=== PATIENT | male | born 1950 | race Caucasian/White ===

== ENCOUNTER → 2016-11-11 | Outpatient (CLI) | payer OTHER, MEDICAID | LOC: FIMAGING 13:42 | PROVIDERS: ATTEND Internal Medicine | DX: M75.42 Impingement syndrome of left shoulder (principal); M75.82 Other shoulder lesions, left shoulder; M75.22 Bicipital tendinitis, left shoulder ==

== ENCOUNTER 2017-01-05 17:07 | Observation (INO) | payer OTHER, MEDICAID ==
[2017-01-05 18:21] LABS: ADD DIFF? YES; ADD MORPH? NO; ADD SCAN? NO; ATYPICAL LYMPHOCYTE FLAG 60 (0-99); FRAGMENT RBC FLAG 0 (0-99); HEMATOCRIT 42.6 % (40.0-51.0); HEMOGLOBIN 14.1 g/dL (13.7-17.5); LEFT SHIFT FLG 0 (0-99); LIPEMIA HEMOLYSIS FLAG 80 (0-99); MEAN CELL HEMOGLOBIN 28.8 pg (27.9-34.1); MEAN CELL HEMOGLOBIN CONCENTR. 33.1 g/dL (32.4-36.7); MEAN CELL VOLUME 87.1 fL (81.5-99.8); MEAN PLATELET VOLUME 10.4 fL (8.7-11.7); PLATELET CLUMPS FLAG 0 (0-99); PLATELET COUNT 166 10^3/uL (150-400); RED BLOOD CELL COUNT 4.89 10^6/uL (4.40-6.38); RED CELL DISTRIBUTION WIDTH 14.5 % (11.5-15.2)
[2017-01-05 18:35] LABS: ANION GAP 8 mEq/L (8-16); CALCIUM 9.3 mg/dL (8.5-10.4); CARBON DIOXIDE 24 mEq/l (22-31); CHLORIDE 105 mEq/L (97-110); CREATININE 0.6 mg/dL (0.7-1.3); GLOMERULAR FILTRATION RATE > 60; GLUCOSE 88 mg/dL (70-100); POTASSIUM 3.6 mEq/L (3.5-5.2); SODIUM 137 mEq/L (134-144)
[2017-01-05 18:47] LABS: PLATELET ESTIMATE ADEQUATE (ADEQ)
--- NOTE | 2017-01-05 18:49 | EDPHY ---
H & P Stated Complaint: blisters to feet/chills(put vandana tree oil on feet Time Seen by Provider: 01/05/17 17:32 HPI/ROS: CHIEF COMPLAINT: Bilateral feet infection with blisters HISTORY OF PRESENT ILLNESS: This is a 66-year-old male presenting to the emergency department via wheelchair. Patient states he had been using tea tree oil to help with toenail on fungus infection x2 weeks. One week ago he noticed redness and swelling to his bilateral lower feet, into 3 days ago noticed blisters to his feet with increased redness spreading up his lower legs. Denies any fever chills nausea vomiting. Patient was seen by his primary care provider today Dr. Soni and was sent to the ER for admit IV antibiotics REVIEW OF SYSTEMS: Constitutional: No fever, no chills. Eyes: No visual changes. ENT: No sore throat Respiratory: No cough, no shortness of breath. Cardiac: No chest pain. Gastrointestinal: No abdominal pain Genitourinary: No hematuria. Musculoskeletal: No back pain. Skin: No rashes. Bilateral lower extremity redness with blisters Neurological: No headache. Source: Patient - Personal History Current Tetanus/Diphtheria Vaccine: Unsure - Medical/Surgical History Hx Asthma: No Hx Chronic Respiratory Disease: No Hx Diabetes: No Hx Cardiac Disease: No Hx Renal Disease: No Hx Cirrhosis: No Hx Alcoholism: No Hx HIV/AIDS: No Hx Splenectomy or Spleen Trauma: No Other PMH: paraplegia , chronic utis; suprapubic catheter transverse myelitis - Social History Smoking Status: Never smoked - Physical Exam Exam: General Appearance: Alert, no distress. Eyes: Pupils equal and round no pallor or injection. ENT, Mouth: Mucous membranes moist. Respiratory: There are no retractions, lungs are clear to auscultation. Cardiovascular: Regular rate and rhythm. Gastrointestinal: Abdomen is soft and nontender, no masses, bowel sounds hypoactive. [place] leg bag noted patent Skin: Bilateral lower extremity redness and warmth swelling with blisters noted to the bottom of his feet. 1+ pedal edema nonpalpable pedal pulses pedal pulses noted via Doppler. Musculoskeletal: Neck is supple nontender. Extremities: Full range of motion upper extremities. 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 ] Constitutional: Initial Vital Signs Temperature (C) 36.3 C 01/05/17 17:20 Heart Rate 78 01/05/17 17:20 Respiratory Rate 20 01/05/17 17:20 Blood Pressure 122/63 H 01/05/17 17:20 O2 Sat (%) 100 01/05/17 17:20 O2 Delivery Mode Room Air Allergies/Adverse Reactions: No Known Allergies Allergy (Verified 01/05/17 17:19) Home Medications: Medication Instructions Recorded Betamethasone Dipropionate 15 gm TP BID PRN 01/05/17 Herbals/Supplements -Info Only 1 ea PO DAILY 01/05/17 Multivitamins [Multivitamin (*)] 1 each PO DAILY 01/05/17 Oxybutynin Chloride Xl [Ditropan 5 mg PO DAILY 01/05/17 Xl 5mg (*)] Medical Decision Making ED Course/Re-evaluation: Discussed plan of care the patient: CBC, Chem 7, lactate. Discussed also patient will be admitted for inpatient treatment 1850: Spoke with hospitalist Dr. Fields for patient admit Differential Diagnosis: Differential diagnosis considered but not limited to necrotizing fasciitis, dermatitis and skin abscess - Data Points Laboratory Results: Laboratory Results 01/05/17 17:50 01/05/17 17:50 01/05/17 01/05/17 01/05/17 17:50 17:50 17:50 WBC 6.90 10^3/uL 10^3/uL (3.80-9.50) RBC 4.89 10^6/uL 10^6/uL (4.40-6.38) Hgb 14.1 g/dL g/dL (13.7-17.5) Hct 42.6 % % (40.0-51.0) MCV 87.1 fL fL (81.5-99.8) MCH 28.8 pg pg (27.9-34.1) MCHC 33.1 g/dL g/dL (32.4-36.7) RDW 14.5 % % (11.5-15.2) Plt Count 166 10^3/uL 10^3/uL (150-400) MPV 10.4 fL fL (8.7-11.7) Neut % (Auto) Not Reported Lymph % (Auto) Not Reported [facility] % (Auto) Not Reported Eos % (Auto) Not Reported Baso % (Auto) Not Reported Nucleat RBC Rel Count 0.0 % % (0.0-0.2) Absolute Neuts (auto) Not Reported Absolute Lymphs (auto) Not Reported Absolute Monos (auto) Not Reported Absolute Eos (auto) Not Reported Absolute Basos (auto) Not Reported Absolute Nucleated RBC 0.00 10^3/uL 10^3/uL (0-0.01) Immature Gran % Not Reported Seg Neutrophils % 56 % % Band Neutrophils % 2 % % Lymphocytes % 17 % % Monocytes % 3 % % Eosinophils % 22 % % Immature Gran # Not Reported Absolute Seg Neuts 3.86 10^/uL 10^/uL (1.70-6.50) Absolute Band Neuts 0.14 10^3/uL 10^3/uL (0.00-0.70) Absolute Lymphocytes 1.17 10^3/uL 10^3/uL (1.00-3.00) Absolute Monocytes 0.21 10^3/uL L 10^3/uL (0.30-0.80) Absolute Eosinophils 1.52 10^3/uL H 10^3/uL (0.03-0.40) RBC/WBC/PLT Morphology NORMAL (NORMAL) Platelet Estimate ADEQUATE (ADEQ) Smear Review By Pending VBG Lactic Acid 1.1 mmol/L mmol/L (0.7-2.1) Sodium 137 mEq/L mEq/L (134-144) Potassium 3.6 mEq/L mEq/L (3.5-5.2) Chloride 105 mEq/L mEq/L (97-110) Carbon Dioxide 24 mEq/l mEq/l (22-31) Anion Gap 8 mEq/L mEq/L (8-16) BUN 19 mg/dL mg/dL (7-23) Creatinine 0.6 mg/dL L mg/dL (0.7-1.3) Estimated GFR > 60 Glucose 88 mg/dL mg/dL (70-100) Calcium 9.3 mg/dL mg/dL (8.5-10.4) Departure - Departure Disposition: [facility] Inpatient Acute Clinical Impression: Cellulitis Qualifiers: Site of cellulitis: extremity Site of cellulitis of extremity: lower extremity Laterality: unspecified laterality Qualified Code(s): L03.119 - Cellulitis of unspecified part of limb Condition: Good
[2017-01-05] MEDS ORDERED: ACETAMINOPHEN 325 MG TAB PO PRN (20:23)
[2017-01-05] MEDS ORDERED: ONDANSETRON DISINTEGRATING 4 MG TAB PO PRN (20:23)
[2017-01-05] MEDS ORDERED: ONDANSETRON 4 MG/2 ML VIAL IVP PRN (20:23)
--- NOTE | 2017-01-05 20:42 | GHP ---
[f rep st] HISTORY AND PHYSICAL DATE OF ADMISSION: 01/05/2017 CHIEF COMPLAINT: Bilateral lower extremity redness and blistering. HISTORY OF PRESENT ILLNESS: This is a 66-year-old male with a history of transverse myelitis and pa raplegia. He has wanted to treat toenail fungus and for the last week or so he has been treating it with tea tree oil. He has not been diluting it and has been using large amounts of it. Several da ys ago, he started developing redness and irritation and then it has progressed with a little bit of blistering. He had a little bit of chills today but no fever. He does have increased pain. REVIEW OF SYSTEMS: A 10-point review of systems was obtained and other than what was stated above w as negative. PAST MEDICAL HISTORY: 1. Transverse myelitis with paraplegia. 2. Chronic urinary tract infections with suprapubic catheter. MEDICATIONS: Reviewed. SOCIAL HISTORY: No smoking or alcohol. FAMILY HISTORY: Reviewed, noncontributory. PHYSICAL EXAMINATION: VITAL SIGNS: Afebrile, blood pressure is 127/68, heart rate is 57, oxygen sa turation 97% on room air. GENERAL: The patient is well developed, in no apparent distress. HEENT: Nonicteric sclerae. Extraocular movements intact. Moist mucous membranes. NECK: Supple. No th yromegaly. LUNGS: Good effort. Clear to auscultation bilaterally. CARDIOVASCULAR: Regular rate and rhythm. No murmurs or gallops. ABDOMEN: Positive bowel sounds. Soft, nontender, nondistended . No hepatosplenomegaly. EXTREMITIES: Bilateral erythema of the feet extending to the mid leg. T here is blistering over the areas close to the toes, small blistering. ASSESSMENT: This is a 66-year-old male presenting with probable caustic reaction to tea tree oil pl us or minus cellulitis. PLAN: 1. Rule out cellulitis. I am skeptical that this is cellulitis and probably favor more of a causti c reaction from the tea tree oil. I believe tea tree undiluted could be quite caustic. He does not have an elevated white count nor does he have fever. His legs look exactly symmetric. It is possi ble that there is maybe a superinfection. For this reason, I am going to treat. I am going to star t IV Ancef overnight. We will see if there is any change in the redness from that. Also have Infec tious Disease see him in the morning as they are familiar with him from previous from his chronic ur inary tract infections. 2. History of paraplegia. 3. Chronic urinary tract infections. The patient is not having any symptoms of this currently. 4. Admission. The patient will be admitted under observation status. The case was discussed with the ER physician. Old records were reviewed and summarized in HPI. /[id number]/MODL
[2017-01-06 08:52] VITALS: TEMP 97.4
[2017-01-06] MEDS ORDERED: OXYBUTYNIN 5 MG EXT REL TAB PO SCH (09:00)
--- NOTE | 2017-01-06 10:14 | PCMIDPN ---
Assessment/Plan: Assessment/Plan: * Bilateral foot erythema with blistering after application of tea tree oil: Suspect majority of findings are related to contact dermatitis given absence of constitutional symptoms and prominent eosinophilia. Right great toe does have shiny erythematous appearance that could be seen with cellulitis however. Favored primarily targeting as if contact dermatitis at this point. Will transition cefazolin to Augmentin 875 mg p. o. twice daily in event superinfection present. Will have follow-up in my office with me on Thursday for repeat assessment. Advised to notify me if he experiences worsening lower extremity erythema or develops constitutional symptoms. Findings and plan reviewed with Dr. Ramesh. 01/06/17 10:11 Subjective: Asked to see patient for bilateral lower extremity erythema with concerns about possible cellulitis. Patient well known to me from outpatient care related to recurrent UTI associated with paraplegia. No sensation in lower extremities bilaterally. Patient describes applying tea tree oil to 4 toenail fungus over last 2 weeks and over last week has developed erythema with blistering over both feet. Unclear if he had tea tree oil that had spilled on to skin over dorsum of foot. He was applying socks after its application and does note that these would get wet. He does not feel systemically ill. He describes having some chills but this is not uncommon for him and these have not been different. No fever. Based on these findings, Infectious diseases is now asked to assist in his ongoing management. Objective: Vital Signs Temp Pulse Resp BP Pulse Ox 36.3 C 68 16 100/43 L 97 01/06/17 08:48 01/06/17 08:48 01/06/17 08:48 01/06/17 08:48 01/06/17 08:48 01/05/17 01/06/17 01/07/17 05:59 05:59 05:59 Intake Total 650 Output Total 900 Balance -250 Cefazolin # 1 Blood cultures x2 pending - Physical Exam General Appearance: alert, no apparent distress EENT: No scleral icterus Extremities: inflammation (Bilateral feet with bright erythema and bullous lesions over plantar aspect which are weeping clear fluid; all web spaces denuded with scattered scabbing over dorsal aspect of toes; warmth is present; patchy more papular erythema extends into lower extremities bilaterally) Lymphatic: other (No lymphangitis in either lower extremity) ICD10 Worksheet Patient Problems: Problems Problem Status Onset Cellulitis Acute Infection due to resistant organism Active Vancomycin resistant enterococcus culture positive Acute 01/23/16
--- NOTE | 2017-01-06 10:36 | WOCRNPDOC ---
WOCRN Advanced Assessment Note - Skin Integrity Problem, Advanced Assess Bilateral Foot Dressing Type: Open to Air Exudate Amount: Minimal Exudate Color: Clear Exudate Characteristic(s): Serous Jojo Wound Tissue: Erythema, Macerated, Swollen, Weeping, Shiny Jojo Wound Swelling: Moderate Wound Bed Constitution: Draining Serous Blister Skin Integrity Problem Comment: Multiple intact and draining blisters noted to plantar aspect of bilateral metatarsals, and in-between toes. There is significant maceration between patient's toes, w/ shallow partial-thickness tissue loss observed r/t denudement from exposure to exudate. Dorsal aspect of the foot has some scattered satellite lesions w/ some excoriation noted. Per patient report, these blisters are r/t application of tea tree oil on his toes and feet for tx of fungal infection. Erythema observed throughout bilateral feet , extending up both lower extremities to the knee, w/ trace pitting edema. Order for Mepilex Transfer to be applied in between toes and over blisters to manage exudate. Physician recommends topical corticosteroid cream over dry, itchy areas on the top of feet and lower legs. Report given to face boss Julie.
[2017-01-06 13:00] VITALS: BP 107/56; PULSE 77; RESP 18; O2SAT 98
--- NOTE | 2017-01-06 15:36 | GDS ---
[f rep st] DISCHARGE SUMMARY DISCHARGE DIAGNOSES: 1. Bilateral lower extremity erythema and blisters most likely due to contact dermatitis from tea t ree oil versus infection. 2. History of transverse myelitis. 3. Chronic urinary tract infections. CONSULTANTS: Dr. Gatito Machuca, as well as Mary Jimenez from [facility]. HOSPITAL COURSE AND STAY BY PROBLEM: Bilateral lower extremity erythema: The patient was initially placed on IV cefazolin. On hospital day #1, the patient has continued to have some erythema and bl isters that are most likely due to contact dermatitis. I discussed this with Dr. Gatito Machuca who is r ecommending outpatient treatment with Augmentin as well as a trial of topical steroids. PHYSICAL EXAM: VITAL SIGNS: On day of discharge, blood pressure 107/56, pulse 77, respiratory rate 18, O2 saturation 98% on room air. Temperature afebrile. GENERAL: No acute distress. EXTREMITIE S: Bilateral lower extremities are erythematous with blisters on the feet. PERTINENT LABS AND STUDIES: None. DISCHARGE MEDICATIONS: Please refer to discharge medication reconciliation in [facility] for details. Below is a preliminary list. Augmentin 875 mg p.o. b.i.d. for 7 days, triamcinolone 0.1% cream to be applied to red, irritated sk in twice daily. DISCHARGE INSTRUCTIONS: The patient will be discharged from the hospital where he plans to follow u p with Dr. Machuca at 2 p.m. on 01/09/2017. He was instructed to seek medical attention if his symptom s worsen or if he develops any fevers. /[id number]/MODL
== END 2017-01-06 15:30 | disposition home health service (06) ==
LOC: INTOOBSV 18:53 → F1N 20:29
PROVIDERS: ADMIT Internal Medicine; ATTEND Family Medicine
DX: S90.821A Blister (nonthermal), right foot, initial encounter (principal); L03.115 Cellulitis of right lower limb; S90.822A Blister (nonthermal), left foot, initial encounter; L03.116 Cellulitis of left lower limb; T49.3X5A Adverse effect of emollients, demulcents and protectants, initial encounter; G37.3 Acute transverse myelitis in demyelinating disease of central nervous system; G82.20 Paraplegia, unspecified; Z87.440 Personal history of urinary (tract) infections; Z99.3 Dependence on wheelchair
CPT/HCPCS: 99285; G0378; J0690

== ENCOUNTER 2017-01-27 10:08 | Inpatient (IN) | payer OTHER, MEDICAID ==
--- NOTE | 2017-01-27 10:26 | EDPHY ---
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 He had shaking chills for 2 hours last night and then a fever to 103 this morning. His infectious disease physician Gatito Machuca advised him to come into the ER. He has had a little bit of the sniffles and a dry mouth but no other symptoms. Specifically no cough or vomiting or diarrhea or headache or dental symptoms or other ENT symptoms. REVIEW OF SYSTEMS: Eye: no change in vision ENT: no sore throat Cardiac: no chest pain or syncope Pulmonary: no cough or SOB Abdomen: no vomiting, diarrhea, abdominal pain Musculoskeletal: no back pain Skin: Residual red skin rash on both lower legs which is unchanged from previous. Neuro: no headache Constitutional: HPI : no urinary symptoms A comprehensive 10 point review of systems is otherwise negative aside from elements mentioned in the history of present illness. 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 Admission earlier this month discharged on January 06 probable contact dermatitis related to tea tree oil application to his legs. Social history: In wheelchair, nonsmoker General Appearance: Alert and conversant, cooperative. Eyes: No scleral icterus. ENT, Mouth: Slightly dry mucous membranes. Respiratory: Normal respiratory effort, breath sounds equal, lungs are clear to auscultation. Cardiovascular: Regular rate and rhythm. Gastrointestinal: Abdomen is soft and non tender. Neurological: Alert and oriented x3. Normally conversant. Patient is lower extremity paralysis which is unchanged. Skin: Slight bilateral leg redness which is chronic since previous hospitalization. Musculoskeletal: He has muscle wasting in both lower extremities. No other deformity noted. Psychiatric: Not agitated. Emergency Department course/MDM: Discussed with Gatito Machuca 1026. Previous urine cultures reviewed include vancomycin resistant enterococcus and Pseudomonas. Zosyn per discussion with Gatito Machuca at 1155, considered skin on legs, UTI, lungs all as possible sources. 4.5 g IV Zosyn ordered, a 2nd blood pressure 90/5 systolic, 30 mL/kilos IV fluid bolus ordered. Admission to Step-Down Unit with elevated lactate and systolic blood pressure 95. 1308: 117/64, 2nd lactate 2.8 1445: additional 2l NS IV, seen by Fito in ED. Smoking Status: Never smoked Constitutional: Initial Vital Signs Temperature (C) 36.5 C 01/27/17 10:13 Heart Rate 88 01/27/17 10:13 Respiratory Rate 20 01/27/17 10:13 Blood Pressure 105/59 L 01/27/17 10:13 O2 Sat (%) 99 01/27/17 10:13 O2 Delivery Mode Room Air Allergies/Adverse Reactions: No Known Allergies Allergy (Verified 01/27/17 10:11) Home Medications: Medication Instructions Recorded Herbals/Supplements -Info Only 1 ea PO DAILY 01/05/17 Multivitamins [Multivitamin (*)] 1 each PO DAILY 01/05/17 Oxybutynin Chloride Xl [Ditropan 5 mg PO DAILY 01/05/17 Xl 5mg (*)] Desoximetasone 0.25% [Topicort 1 fannie TP BID 01/27/17 0.25% Cream (*)] Triamcinolone 0.1% [Triamcinolone 1 fannie TP BID 01/27/17 0.1% Cream] Medical Decision Making - Diagnostics Imaging Results: Imaging Impressions Chest X-Ray 01/27/17 10:26 Impression: Lower lung lung bronchial wall thickening +/- early right lower lung pneumonia. Differential Diagnosis: Differential considered including but not limited to UTI, cellulitis, pneumonia , sepsis or endocarditis. Consult/Admit Bed Type: [facility] 1145am for Fito, [facility] at 1216 Critical Care Time: Critical care time spent by me, Dr. Smiley, exclusively with the care of this patient was 45 minutes, exclusive of PA or APPLIANCE TECHNICIAN time and exclusive of separate procedures. The organ system at risk was infectious and I ordered multiple diagnostic studies, fluid resuscitation, IV antibiotics, discussion with consultant nurse infectious disease physician to stabilize the patient and prevent worsening of the patient's condition. - Data Points Laboratory Results: Laboratory Results 01/27/17 10:45 01/27/17 10:45 01/27/17 01/27/17 01/27/17 11:05 10:45 10:45 WBC RBC Hgb Hct MCV MCH MCHC RDW Plt Count MPV Neut % (Auto) Lymph % (Auto) [place] % (Auto) Eos % (Auto) Baso % (Auto) Nucleat RBC Rel Count Absolute Neuts (auto) Absolute Lymphs (auto) Absolute Monos (auto) Absolute Eos (auto) Absolute Basos (auto) Absolute Nucleated RBC Immature Gran % Immature Gran # PT 14.6 SEC SEC (12.0-15.0) INR 1.15 (0.83-1.16) APTT 30.3 SEC SEC (23.0-38.0) VBG Lactic Acid Sodium Potassium Chloride Carbon Dioxide Anion Gap BUN Creatinine Estimated GFR Glucose Calcium Total Bilirubin 1.3 mg/dL mg/dL (0.1-1.4) Urine Color MATEO Urine Appearance MODERATELY TURBID Urine pH 5.0 (5.0-7.5) Ur Specific [place] 1.026 (1.002-1.030) Urine Protein 2+ H (NEGATIVE) Urine Ketones TRACE H (NEGATIVE) Urine Blood 2+ H (NEGATIVE) Urine Nitrate POSITIVE H (NEGATIVE) Urine Bilirubin NEGATIVE (NEGATIVE) Urine Urobilinogen NEGATIVE EU EU (0.2-1.0) Ur Leukocyte Esterase 2+ H (NEGATIVE) Urine RBC 50-182 /hpf H /hpf (0-3) Urine WBC 50-182 /hpf H /hpf (0-3) Ur Epithelial Cells 1+ /lpf /lpf (NONE-1+) Urine Bacteria 4+ /hpf H /hpf (NONE SEEN) Urine Mucus 3+ /lpf H /lpf (NONE-1+) Urine Glucose NEGATIVE (NEGATIVE) Influenza A,B Rapid 01/27/17 01/27/17 01/27/17 10:45 10:45 10:45 WBC 13.33 10^3/uL H 10^3/uL (3.80-9.50) RBC 4.73 10^6/uL 10^6/uL (4.40-6.38) Hgb 13.6 g/dL L g/dL (13.7-17.5) Hct 42.0 % % (40.0-51.0) MCV 88.8 fL fL (81.5-99.8) MCH 28.8 pg pg (27.9-34.1) MCHC 32.4 g/dL g/dL (32.4-36.7) RDW 14.7 % % (11.5-15.2) Plt Count 159 10^3/uL 10^3/uL (150-400) MPV 10.0 fL fL (8.7-11.7) Neut % (Auto) 86.7 % H % (39.3-74.2) Lymph % (Auto) 7.1 % L % (15.0-45.0) [place] % (Auto) 5.4 % % (4.5-13.0) Eos % (Auto) 0.0 % L % (0.6-7.6) Baso % (Auto) 0.3 % % (0.3-1.7) Nucleat RBC Rel Count 0.0 % % (0.0-0.2) Absolute Neuts (auto) 11.55 10^3/uL H 10^3/uL (1.70-6.50) Absolute Lymphs (auto) 0.95 10^3/uL L 10^3/uL (1.00-3.00) Absolute Monos (auto) 0.72 10^3/uL 10^3/uL (0.30-0.80) Absolute Eos (auto) 0.00 10^3/uL L 10^3/uL (0.03-0.40) Absolute Basos (auto) 0.04 10^3/uL 10^3/uL (0.02-0.10) Absolute Nucleated RBC 0.00 10^3/uL 10^3/uL (0-0.01) Immature Gran % 0.5 % % (0.0-1.1) Immature Gran # 0.07 10^3/uL 10^3/uL (0.00-0.10) PT INR APTT VBG Lactic Acid Sodium 140 mEq/L mEq/L (134-144) Potassium 4.0 mEq/L mEq/L (3.5-5.2) Chloride 104 mEq/L mEq/L (97-110) Carbon Dioxide 21 mEq/l L mEq/l (22-31) Anion Gap 15 mEq/L mEq/L (8-16) BUN 21 mg/dL mg/dL (7-23) Creatinine 0.7 mg/dL mg/dL (0.7-1.3) Estimated GFR > 60 Glucose 93 mg/dL mg/dL (70-100) Calcium 9.3 mg/dL mg/dL (8.5-10.4) Total Bilirubin Urine Color Urine Appearance Urine pH Ur Specific [place] Urine Protein Urine Ketones Urine Blood Urine Nitrate Urine Bilirubin Urine Urobilinogen Ur Leukocyte Esterase Urine RBC Urine WBC Ur Epithelial Cells Urine Bacteria Urine Mucus Urine Glucose Influenza A,B Rapid NEGATIVE FOR FLU (NEGATIVE) 01/27/17 10:45 WBC RBC Hgb Hct MCV MCH MCHC RDW Plt Count MPV Neut % (Auto) Lymph % (Auto) [place] % (Auto) Eos % (Auto) Baso % (Auto) Nucleat RBC Rel Count Absolute Neuts (auto) Absolute Lymphs (auto) Absolute Monos (auto) Absolute Eos (auto) Absolute Basos (auto) Absolute Nucleated RBC Immature Gran % Immature Gran # PT INR APTT VBG Lactic Acid 4.8 mmol/L H mmol/L (0.7-2.1) Sodium Potassium Chloride Carbon Dioxide Anion Gap BUN Creatinine Estimated GFR Glucose Calcium Total Bilirubin Urine Color Urine Appearance Urine pH Ur Specific [place] Urine Protein Urine Ketones Urine Blood Urine Nitrate Urine Bilirubin Urine Urobilinogen Ur Leukocyte Esterase Urine RBC Urine WBC Ur Epithelial Cells Urine Bacteria Urine Mucus Urine Glucose Influenza A,B Rapid Medications Given: Discontinued Medications Acetaminophen (Tylenol) 650 mg PO ONCE ONE Stop: 01/27/17 13:52 Last Admin: 01/27/17 13:58 Dose: 650 mg Sodium Chloride (Ns) 2,000 mls @ 4,000 mls/hr 30 ml/kg infuse over 30 min ( 2000 ml) IV EDNOW ONE Stop: 01/27/17 12:01 Last Admin: 01/27/17 11:47 Dose: 2,000 mls Cefepime HCl 2 gm/ Dextrose 100 mls @ 200 mls/hr IV EDNOW ONE PRN Reason: Protocol Stop: 01/27/17 12:24 Last Admin: 01/27/17 12:44 Dose: Not Given Piperacillin/Tazobactam/Dextrose (Zosyn (Premix)) 100 mls @ 200 mls/hr IV EDNOW ONE PRN Reason: Protocol Stop: 01/27/17 12:27 Last Admin: 01/27/17 12:43 Dose: 100 mls Sodium Chloride (Ns) 1,000 mls @ 0 mls/hr IV ONCE ONE PRN Reason: Wide Open Stop: 01/27/17 13:51 Last Admin: 01/27/17 13:59 Dose: 1,000 mls Sodium Chloride (Ns) 1,000 mls @ 0 mls/hr IV ONCE ONE PRN Reason: Wide Open Stop: 01/27/17 13:51 Last Admin: 01/27/17 16:31 Dose: Not Given Sodium Chloride (Ns) 1,000 mls @ 0 mls/hr IV ONCE ONE PRN Reason: Wide Open Stop: 01/27/17 13:52 Last Admin: 01/27/17 15:40 Dose: 1,000 mls Departure - Departure Disposition: [facility] Inpatient Acute Clinical Impression: Urinary tract infection Qualifiers: Urinary tract infection type: site unspecified Hematuria presence: without hematuria Qualified Code(s): N39.0 - Urinary tract infection, site not specified Pneumonia Qualifiers: Pneumonia type: due to unspecified organism Laterality: right Lung location: lower lobe of lung Qualified Code(s): J18.1 - Lobar pneumonia, unspecified organism Condition: Serious
[2017-01-27 10:55] LABS: % IMMATURE GRANULYOCYTES 0.5 % (0.0-1.1); ABSOLUTE IMMATURE GRANULOCYTES 0.07 10^3/uL (0.00-0.10); ADD DIFF? NO; ADD MORPH? NO; ADD SCAN? NO; ATYPICAL LYMPHOCYTE FLAG 10 (0-99); FRAGMENT RBC FLAG 0 (0-99); HEMOGLOBIN 13.6 g/dL (13.7-17.5); LEFT SHIFT FLG 10 (0-99); LIPEMIA HEMOLYSIS FLAG 80 (0-99); MEAN CELL HEMOGLOBIN 28.8 pg (27.9-34.1); MEAN CELL HEMOGLOBIN CONCENTR. 32.4 g/dL (32.4-36.7); MEAN CELL VOLUME 88.8 fL (81.5-99.8); PLATELET CLUMPS FLAG 0 (0-99); PLATELET COUNT 159 10^3/uL (150-400); RED BLOOD CELL COUNT 4.73 10^6/uL (4.40-6.38); RED CELL DISTRIBUTION WIDTH 14.7 % (11.5-15.2)
[2017-01-27 11:12] LABS: ANION GAP 15 mEq/L (8-16); CALCIUM 9.3 mg/dL (8.5-10.4); CARBON DIOXIDE 21 mEq/l (22-31); CHLORIDE 104 mEq/L (97-110); CREATININE 0.7 mg/dL (0.7-1.3); GLOMERULAR FILTRATION RATE > 60; GLUCOSE 93 mg/dL (70-100); SODIUM 140 mEq/L (134-144)
[2017-01-27 11:22] LABS: COLOR AMBER; LEUKOCYTE ESTERASE,URINE 2+ (NEGATIVE); NITRITE,URINE POSITIVE (NEGATIVE)
[2017-01-27 11:27] LABS: BACTERIA 4+ /hpf (NONE SEEN); MUCUS 3+ /lpf (NONE-1+); RBC,URINE 50-182 /hpf (0-3); WBC,URINE 50-182 /hpf (0-3)
[2017-01-27 11:28] LABS: INR 1.15 (0.83-1.16); PROTIME(PATIENT) 14.6 SEC (12.0-15.0)
[2017-01-27 11:29] LABS: APTT 30.3 SEC (23.0-38.0)
[2017-01-27 11:30] LABS: BILIRUBIN,TOTAL 1.3 mg/dL (0.1-1.4)
[2017-01-27] MEDS ORDERED: NS 2,000 ML IV ONE (11:32)
[2017-01-27 11:50] LABS: LACGHOST ORDER
[2017-01-27] MEDS ORDERED: CEFEPIME HCL 2 GM in D5W 100 ML IV ONE (11:55)
[2017-01-27] MEDS ORDERED: PIPERACILLIN/TAZO 4.5 GM/DEX 100 ML IV ONE (11:58)
[2017-01-27] MEDS ORDERED: NS 1,000 ML IV ONE ×3 (13:50→13:51)
[2017-01-27] MEDS ORDERED: ACETAMINOPHEN 325 MG TAB PO ONE (13:51)
[2017-01-27] MEDS ORDERED: ACETAMINOPHEN 325 MG TAB ONE (13:53)
[2017-01-27] MEDS ORDERED: ONDANSETRON DISINTEGRATING 4 MG TAB PO PRN (15:28)
[2017-01-27] MEDS ORDERED: ONDANSETRON 4 MG/2 ML VIAL IVP PRN (15:28)
--- NOTE | 2017-01-27 16:17 | PCMIDPN ---
Assessment/Plan: Assessment/Plan: * Sepsis syndrome: Patient with fever and rigors with associated increase in lactate and leukocytosis consistent with sepsis. Primary clinical finding is increased erythema of left lower extremity which appears cellulitic. Also has history of recurrent UTI as consideration and did have suprapubic catheter changed yesterday which can serve as etiology for infectious flare. Clinically without significant respiratory symptoms to suggest pneumonia other than did have nasal congestion. Agree with plans to check respiratory viral PCR as influenza remains consideration with influenza B still having community prevalence and testing in emergency department performed by [facility]. Will treat empirically with vancomycin and Zosyn. Contact precautions based on isolation of VRE (ampicillin susceptible) in the past. Time spent, greater than 35 minutes, of which greater than half was spent in coordination of care related to sepsis syndrome. Plan of care was reviewed with Dr. Payton and Dr. Gage. 01/27/17 16:09 01/27/17 16:18 Subjective: Patient well known to me from prior infectious disease care. Patient called office earlier today noting fever to 103 with rigors and was advised seek care in emergency department. No other specific symptoms other than some nasal congestion. When asked about the color of his left lower extremity he does note this appears more red in nature. Describes having suprapubic catheter changed yesterday. Overall skin over both feet has been improving. Was admitted in early January for contact dermatitis of both feet associated with application of tea tree oil. Did receive Augmentin at that time for possibility of superinfection. Objective: Vital Signs Temp Pulse Resp BP Pulse Ox 37 C 91 16 90/44 L 95 01/27/17 15:06 01/27/17 15:06 01/27/17 15:06 01/27/17 15:06 01/27/17 15:06 01/26/17 01/27/17 01/28/17 05:59 05:59 05:59 Intake Total 3000 Output Total 300 Balance 2700 - Physical Exam General Appearance: alert, no apparent distress, non-toxic EENT: No scleral icterus, No thrush Respiratory: lungs clear, No respiratory distress Cardiac/Chest: regular rate, rhythm, No systolic murmur Extremities: inflammation (Left lower extremity with confluent erythema over entirety of foot extending to below knee with warmth and edema; this appears different than prior erythema which was present when contact dermatitis present ; cracking between web spaces of toes fully resolved) Abdomen: non-tender, other (Suprapubic catheter without erythema or drainage), No distended Skin: No embolic lesions Neuro/Psych: No confused ICD10 Worksheet Patient Problems: Problems Problem Status Onset Pneumonia Acute Urinary tract infection Acute Infection due to resistant organism Active Cellulitis Acute Vancomycin resistant enterococcus culture positive Acute 01/23/16
[2017-01-27] MEDS: VANCOMYCIN HCL/NORMAL SALINE 250 ML IV SCH (17:00)
--- NOTE | 2017-01-27 17:31 | PDGENHP ---
History and Physical - Chief Complaint Acute fever - History of Present Illness Primary infectious Disease: Dr. Machuca HPI: 66-year-old male presenting with acute fever characterized by a temperature of 103.1 degrees F associated chills, rhinorrhea, dry mouth, erythema over his left lower extremity with onset of symptoms around mid day on the date of presentation and duration approximately 2 hours thereafter. His chills have been somewhat alleviated by IV fluids and antibiotics received in the emergency department. He reports that he had begun experiencing general malaise on the morning of this presentation with associated anorexia but otherwise been feeling well on the evening prior to presentation. His most recent SP catheter change was on the day prior and he has not had any other medication changes. He did recently complete a course of Augmentin for lower extremity cellulitis. History Information - Allergies/Home Medication List Allergies/Adverse Reactions: No Known Allergies Allergy (Verified 01/27/17 10:11) Home Medications: Herbals/Supplements -Info Only 1 ea PO DAILY 01/05/17 [Last Taken Unknown] Multivitamins [Multivitamin (*)] 1 each PO DAILY 01/05/17 [Last Taken Unknown] Oxybutynin Chloride Xl [Ditropan Xl 5mg (*)] 5 mg PO DAILY 01/05/17 [Last Taken 01/26/17] Desoximetasone 0.25% [Topicort 0.25% Cream (*)] 1 fannie TP BID 01/27/17 [Last Taken 01/26/17] Triamcinolone 0.1% [Triamcinolone 0.1% Cream] 1 fannie TP BID 01/27/17 [Last Taken 01/26/17] I have personally reviewed and updated: family history, medical history, social history, surgical history - Past Medical History Additional medical history: 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 recurrent urinary tract infections with VRE, Pseudomonas, prevention LAURIE. recent contact dermatitis lower extremities - Surgical History Additional surgical history: SP catheter - Family History Additional family history: daughter and granddaughter both recently ill with URI - Social History Smoking Status: Never smoked Alcohol Use: None Drug Use: None Additional social history: utilizes wheelchair Review of Systems ROS: 10pt was reviewed & negative except for what was stated in HPI & below Constitutional: Reports: chills, fever, malaise, other ( anorexia) Physical Exam Temp Pulse Resp BP Pulse Ox 36.5 C 72 16 96/42 L 96 01/27/17 16:15 01/27/17 16:15 01/27/17 16:15 01/27/17 16:15 01/27/17 16:15 Constitutional: no apparent distress, not in pain, other ( visible chills), No uncomfortable Eyes: PERRL, anicteric sclera, EOMI Ears, Nose, Mouth, Throat: moist mucous membranes, hearing normal, ears appear normal, no oral mucosal ulcers Cardiovascular: tachycardia, edema ( trace bilateral lower extremity), No systolic murmur, No irregularly irregular Respiratory: inspiratory crackles ( bilateral bases), No reduced air movement, No expiratory wheeze, No bronchial breath sounds, No respiratory distress Gastrointestinal: normoactive bowel sounds, soft, non-tender abdomen, no palpable masses Skin: other ( confluent erythema left lower extremity, right inner thigh pressure injury) Neurologic: AAOx3, other ( loss of motor strength bilateral lower extremities), No sensation intact bilaterally ( complete absence of sensation from the mid axilla downward) Psychiatric: interacting appropriately, not anxious, not encephalopathic, thought process linear Lab Data & Imaging Review 01/27/17 10:45 01/27/17 10:45 WBC 13.33 10^3/uL (3.80-9.50) H 01/27/17 10:45 RBC 4.73 10^6/uL (4.40-6.38) 01/27/17 10:45 Hgb 13.6 g/dL (13.7-17.5) L 01/27/17 10:45 Hct 42.0 % (40.0-51.0) 01/27/17 10:45 MCV 88.8 fL (81.5-99.8) 01/27/17 10:45 MCH 28.8 pg (27.9-34.1) 01/27/17 10:45 MCHC 32.4 g/dL (32.4-36.7) 01/27/17 10:45 RDW 14.7 % (11.5-15.2) 01/27/17 10:45 Plt Count 159 10^3/uL (150-400) 01/27/17 10:45 MPV 10.0 fL (8.7-11.7) 01/27/17 10:45 Neut % (Auto) 86.7 % (39.3-74.2) H 01/27/17 10:45 Lymph % (Auto) 7.1 % (15.0-45.0) L 01/27/17 10:45 [place] % (Auto) 5.4 % (4.5-13.0) 01/27/17 10:45 Eos % (Auto) 0.0 % (0.6-7.6) L 01/27/17 10:45 Baso % (Auto) 0.3 % (0.3-1.7) 01/27/17 10:45 Nucleat RBC Rel Count 0.0 % (0.0-0.2) 01/27/17 10:45 Absolute Neuts (auto) 11.55 10^3/uL (1.70-6.50) H 01/27/17 10:45 Absolute Lymphs (auto) 0.95 10^3/uL (1.00-3.00) L 01/27/17 10:45 Absolute Monos (auto) 0.72 10^3/uL (0.30-0.80) 01/27/17 10:45 Absolute Eos (auto) 0.00 10^3/uL (0.03-0.40) L 01/27/17 10:45 Absolute Basos (auto) 0.04 10^3/uL (0.02-0.10) 01/27/17 10:45 Absolute Nucleated RBC 0.00 10^3/uL (0-0.01) 01/27/17 10:45 Immature Gran % 0.5 % (0.0-1.1) 01/27/17 10:45 Immature Gran # 0.07 10^3/uL (0.00-0.10) 01/27/17 10:45 PT 14.6 SEC (12.0-15.0) 01/27/17 10:45 INR 1.15 (0.83-1.16) 01/27/17 10:45 APTT 30.3 SEC (23.0-38.0) 01/27/17 10:45 VBG Lactic Acid 2.4 mmol/L (0.7-2.1) H 01/27/17 16:20 Sodium 140 mEq/L (134-144) 01/27/17 10:45 Potassium 4.0 mEq/L (3.5-5.2) 01/27/17 10:45 Chloride 104 mEq/L (97-110) 01/27/17 10:45 Carbon Dioxide 21 mEq/l (22-31) L 01/27/17 10:45 Anion Gap 15 mEq/L (8-16) 01/27/17 10:45 BUN 21 mg/dL (7-23) 01/27/17 10:45 Creatinine 0.7 mg/dL (0.7-1.3) 01/27/17 10:45 Estimated GFR > 60 01/27/17 10:45 Glucose 93 mg/dL (70-100) 01/27/17 10:45 Calcium 9.3 mg/dL (8.5-10.4) 01/27/17 10:45 Total Bilirubin 1.3 mg/dL (0.1-1.4) 01/27/17 10:45 Urine Color MATEO 01/27/17 11:05 Urine Appearance MODERATELY TURBID 01/27/17 11:05 Urine pH 5.0 (5.0-7.5) 01/27/17 11:05 Ur Specific Wise 1.026 (1.002-1.030) 01/27/17 11:05 Urine Protein 2+ (NEGATIVE) H 01/27/17 11:05 Urine Ketones TRACE (NEGATIVE) H 01/27/17 11:05 Urine Blood 2+ (NEGATIVE) H 01/27/17 11:05 Urine Nitrate POSITIVE (NEGATIVE) H 01/27/17 11:05 Urine Bilirubin NEGATIVE (NEGATIVE) 01/27/17 11:05 Urine Urobilinogen NEGATIVE EU (0.2-1.0) 01/27/17 11:05 Ur Leukocyte Esterase 2+ (NEGATIVE) H 01/27/17 11:05 Urine RBC 50-182 /hpf (0-3) H 01/27/17 11:05 Urine WBC 50-182 /hpf (0-3) H 01/27/17 11:05 Ur Epithelial Cells 1+ /lpf (NONE-1+) 01/27/17 11:05 Urine Bacteria 4+ /hpf (NONE SEEN) H 01/27/17 11:05 Urine Mucus 3+ /lpf (NONE-1+) H 01/27/17 11:05 Urine Glucose NEGATIVE (NEGATIVE) 01/27/17 11:05 Influenza A,B Rapid NEGATIVE FOR FLU (NEGATIVE) 01/27/17 10:45 Visualized and Interpreted Chest x-ray results: Yes Chest X-Ray results: other ( possible right lower lobe infiltrate versus peribronchial thickening) Assessment & Plan Assessment: 66-year-old male presents with severe sepsis in the setting suspected cellulitis, possible catheter associated urinary tract infection Plan: 1. Severe sepsis. Acute, new problem this provider, further workup indicated. Evidenced by fever, leukocytosis, tachycardia, clear source of infection, end- organ failure notably lactic acidosis, resulting in autonomic dysregulation in the setting of infection - status post weight based IV fluids, continue normal saline at 150 cc an hour - discussed with Dr. Machuca, will consider broadening his antibiotic coverage to vancomycin and Zosyn to cover any potential skin organisms including MRSA - blood cultures sent - send respiratory viral panel - CT of chest demonstrating no evidence of focal infiltrate - repeat serial lactic acid levels until cleared - infectious disease consultation placed 2. Suspected cellulitis. Bilateral lower extremities, left greater than right, confluent erythema which is per Dr. Machuca increased from prior - cover broadly given his severity of illness with Vanco and Zosyn - get lower extremity ultrasounds given immobility and high risk of DVT which could also result in the above-mentioned skin findings 3. Possible catheter associated urinary tract infection. Present on admission, patient has been SP catheter which was changed on the day prior but has positive urinalysis and severe sepsis physiology, warranting consideration of possible CAUTI - Culture sent - reviewed outside records including those from 10/07/2016 demonstrating patient had prevent see greater than 100,000 colonies, sensitive to cephalosporins 4. Suspected pressure injury. lower extremity, secondary to friction, wound care consult placed 5. Paralysis. 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 Metabolic acidosis. Acute, lactic acid, 2/2 above, cont IVF Diet. Regular Prophylaxis. High risk patient, Lovenox 40 Code. Full per patient Disposition. Anticipated discharge uncertain this time, anticipated length stay is greater than 48 hours warranting inpatient admission status for severe sepsis in the setting of suspected cellulitis, requiring step-down unit level care. The patient is critically ill and I spent 40 minutes of critical care time evaluating the patient, coordinating with Dr. Smiley in the emergency department, addressing the issues as outlined above.
[2017-01-27] MEDS: PIPERACILLIN/TAZO 4.5 GM/DEX 100 ML IV SCH (18:11)
[2017-01-27] MEDS: DESOXIMETASONE 0.25% TP SCH (20:46)
[2017-01-27] MEDS: TRIAMCINOLONE 0.1% 15 GM CRTUBE TP SCH (20:46)
[2017-01-27] MEDS: ACETAMINOPHEN 325 MG TAB PO PRN (20:47)
[2017-01-28] MEDS: NS 1,000 ML IV SCH ×2 (00:01→23:18)
[2017-01-28] MEDS: PIPERACILLIN/TAZO 4.5 GM/DEX 100 ML IV SCH ×5 (05:31→23:18)
[2017-01-28] MEDS: VANCOMYCIN HCL/NORMAL SALINE 250 ML IV SCH ×2 (05:31→16:59)
[2017-01-28] MEDS: ACETAMINOPHEN 325 MG TAB PO PRN (05:37)
[2017-01-28 05:51] LABS: % IMMATURE GRANULYOCYTES 0.5 % (0.0-1.1); ABSOLUTE IMMATURE GRANULOCYTES 0.06 10^3/uL (0.00-0.10); ADD DIFF? NO; ADD MORPH? NO; ADD SCAN? NO; ATYPICAL LYMPHOCYTE FLAG 0 (0-99); FRAGMENT RBC FLAG 0 (0-99); HEMATOCRIT 36.1 % (40.0-51.0); LEFT SHIFT FLG 30 (0-99); LIPEMIA HEMOLYSIS FLAG 80 (0-99); MEAN CELL HEMOGLOBIN 29.2 pg (27.9-34.1); MEAN CELL HEMOGLOBIN CONCENTR. 33.2 g/dL (32.4-36.7); MEAN CELL VOLUME 87.8 fL (81.5-99.8); MEAN PLATELET VOLUME 10.5 fL (8.7-11.7); PLATELET CLUMPS FLAG 30 (0-99); PLATELET COUNT 120 10^3/uL (150-400); RED BLOOD CELL COUNT 4.11 10^6/uL (4.40-6.38); RED CELL DISTRIBUTION WIDTH 14.9 % (11.5-15.2)
[2017-01-28 06:04] LABS: ALANINE AMINOTRANSFERASE 34 IU/L (21-72); ALKALINE PHOSPHATASE 52 IU/L (38-126); ANION GAP 10 mEq/L (8-16); ASPARTATE AMINOTRANSFERASE 37 IU/L (17-59); BILIRUBIN,TOTAL 1.4 mg/dL (0.1-1.4); CALCIUM 7.8 mg/dL (8.5-10.4); CARBON DIOXIDE 19 mEq/l (22-31); CHLORIDE 112 mEq/L (97-110); CREATININE 0.6 mg/dL (0.7-1.3); GLOMERULAR FILTRATION RATE > 60; GLUCOSE 83 mg/dL (70-100); POTASSIUM 3.6 mEq/L (3.5-5.2); SODIUM 141 mEq/L (134-144); TOTAL PROTEIN 5.6 g/dL (6.3-8.2)
[2017-01-28] MEDS: DESOXIMETASONE 0.25% TP SCH ×2 (08:23→20:09)
[2017-01-28] MEDS: MULTIVITAMINS 1 EACH TAB PO SCH (08:23)
[2017-01-28] MEDS: TRIAMCINOLONE 0.1% 15 GM CRTUBE TP SCH ×2 (08:23→20:09)
[2017-01-28] MEDS ORDERED: Herbals/Supplements -Info Only PO SCH (09:00)
[2017-01-28] MEDS ORDERED: ENOXAPARIN 40 MG/0.4 ML SYR SC SCH (09:00)
[2017-01-28] MEDS: OXYBUTYNIN 5 MG EXT REL TAB PO SCH (09:37)
--- NOTE | 2017-01-28 10:01 | PCMIDPN ---
Assessment/Plan: Assessment/Plan: * Severe sepsis with likely etiology left lower extremity cellulitis: Clinically improved with stable blood pressure. Left lower extremity remain cellulitic and now has associated lymphangitis in the thigh. Most likely related to prior contact dermatitis with extensive cracking between web spaces of toes. Clinical appearance most suggestive of streptococcal etiology. Does have pressure ulceration in the lower extremity as well although this has clean base in no immediate surrounding cellulitis. CT of chest without evidence of pneumonia and respiratory viral PCR is negative. Urinary etiology remains consideration with chronic suprapubic catheter (likely to have positive urine culture) although think this is primarily driven by his cellulitis. Continue empiric vancomycin and Zosyn pending blood culture data. May be able to narrow in next 24 hours. * Mild left groin intertrigo: Begin nystatin powder. * Left lower extremity pressure ulceration: Continue local wound care and pressure offloading. 01/28/17 09:58 01/28/17 10:02 Subjective: Patient feels better today. Did have recurrent chills overnight with fever. Blood pressure has remained stable. Objective: Vital Signs Temp Pulse Resp BP Pulse Ox 37.2 C 88 14 114/61 95 01/28/17 08:00 01/28/17 08:00 01/28/17 08:00 01/28/17 08:00 01/28/17 08:00 Microbiology 01/27/17 16:30 Respiratory Panel (PCR) - Final Nasal, Sinus - Mchenry Viral Transport No Organism Detected Laboratory Results 01/28/17 05:45 01/28/17 05:45 01/27/17 01/28/17 01/29/17 05:59 05:59 05:59 Intake Total 4617 Output Total 950 Balance 3667 Vancomycin # 1 Zosyn # 1 Blood cultures x2 pending Urine culture pending Respiratory viral PCR negative CT chest without evidence of pneumonia - Physical Exam General Appearance: alert, no apparent distress, non-toxic EENT: No thrush Respiratory: lungs clear, No respiratory distress Cardiac/Chest: regular rate, rhythm, No systolic murmur Extremities: inflammation (Left lower extremity with persistent erythema and edema which is warm to palpation; intensity slightly less than at time of presentation; no bulla or areas of fluctuance) Abdomen: non-tender, other (Suprapubic catheter site without erythema or drainage), No distended Skin: other (Pressure ulceration over left lower extremity measuring approximately 3 cm in diameter with clean base (present at time of admission); mild intertrigo in left groin) Neuro/Psych: No confused Lymphatic: other (Lymphangitis left thigh present) ICD10 Worksheet Patient Problems: Problems Problem Status Onset Pneumonia Acute Urinary tract infection Acute Infection due to resistant organism Active Cellulitis Acute Vancomycin resistant enterococcus culture positive Acute 01/23/16
[2017-01-28] MEDS: NYSTATIN POWDER 15 GM BTL TP SCH ×2 (11:19→20:09)
--- NOTE | 2017-01-28 11:51 | WOCRNPDOC ---
JARR[facility] Advanced Assessment Note - Skin Integrity Problem, Advanced Assess Left Lateral Knee Pressure Injury Dressing Type: Allevyn Life Dressing Description: Intact Integumentary Issue Intervention: Visualized Under Dressing Jojo Wound Tissue: Blanching, Erythema, Hot, Erythema Marked by Wound RN Jojo Wound Swelling: Moderate Wound Bed Color: Red, Yellow Wound Bed Constitution: Granulation Tissue (80%), Smooth Tissue Wound Edges: Epithelizing Site Odor: Moderate, Musky Site Measurement - Head-to-Toe Length X Width X Depth (cm): 2.5x2.5x0.3 Pressure Injury Stage: Stage 3 Pressure Injury Present on Admit: Yes Skin Integrity Problem Comment: Severe bright red erythema from left foot to proximal lower leg. Foot and lower leg are very swollen, hot and taught. Erythema extends to left groin. Wound itsself is a healing full thickness wound. Wound bed is clean; non necrotic. Dr. Payton in room and RN Malina who reported erythema appears to be worse since her previous assessment one hour ago. Reported findings to Dr. Machuca of ID.
[2017-01-28] MEDS ORDERED: IBUPROFEN 600 MG TAB PO PRN (13:53)
[2017-01-28] MEDS ORDERED: ENOXAPARIN 30 MG/0.3 ML SYR SC ONE ×2 (15:54→16:45)
[2017-01-28] MEDS: ENOXAPARIN 80 MG/0.8 ML SYR SC SCH (21:57)
--- NOTE | 2017-01-28 22:10 | GPROG ---
[f rep st] PROGRESS NOTE SUBJECTIVE: Patient is reporting chills. He is not able to sense his lower extremities. OBJECTIVE: VITAL SIGNS: Systolic blood pressure 110-140, heart rate 80-90, T-max 38.7, respiratory rate 25, net positive 4 L normal saline overnight. GENERAL: Alert, awake, oriented x3. No appare nt distress. Pain level is currently 0/10. CARDIAC: Regular rate and rhythm. No murmurs, rubs, o r gallops appreciated. He does have 1+ left lower extremity edema, trace right lower extremity av a. RESPIRATORY: Clear to auscultation bilaterally. No crackles. No wheezes. No areas of reduced air movement. No tachypnea. GASTROINTESTINAL: Bowel sounds are present. ABDOMEN: Soft, nontend er, nondistended. No masses palpated. SKIN: Blanching, confluent erythema left lower extremity from the foot to the proximal lower leg, e xpanded since the day prior. Soft-tissue edema. No induration. No fluctuance. Pressure injury medina perior to this area. NEURO: No sensation distal to the mid chest. LABORATORY DATA: White blood cell count 12,100. Hemoglobin 12, creatinine 0.6, lactic acid 1.1. R espiratory viral panel negative. Potassium 3.6. Urine culture pending. ASSESSMENT: 66-year-old male presents with severe sepsis in the setting of cellulitis and deep vein thrombosis. PLAN: 1. Severe sepsis. Evidenced by tachycardia, leukocytosis, fever, tachypnea, clear source of infect ion notably cellulitis, end-organ failure, notably lactic acidosis, resulting in autonomic dysregula tion in the setting of infection. a. - Continue IV fluids. b. - Continue broad-spectrum IV antibiotics. c. - Continue to monitor for overt fevers. Treat chills symptomatically with ibuprofen. Holding on Tylenol so as not to block an overt fever. d. - Continue to monitor CBC. 2. Cellulitis. Acute worsening, evidenced by confluent erythema over the left lower extremity. Ava uriostegui marked by wound care. Discussed with Dr. Gatito Machuca. He recommends that we continue on broad- spectrum coverage with vancomycin and Zosyn unless we have an to help us narrow. 3. Deep venous thrombosis. Present on admission. Identified with lower extremity ultrasound. It may be contributing to some of the patient's edema as well as erythema. We will initiate therapeuti vivi Lovenox at this time and gauge effect. 4. Pressure injury. Present on admission. A wound care consult appreciated. Left lower extremity . 5. Metabolic acidosis. Acute, secondary to lactic acid. Treated with IV fluids. 6. Paraplegia. The patient has paraplegia from transverse myelitis and is wheelchair bound. [facility] ed with therapy modalities. Undetermined whether he will be safe to return home after this acute ho spitalization. 7. Diet: Regular. 8. Prophylaxis: High risk patient. Initiating on systemic anticoagulation. 9. Code: Full per patient. 10. Disposition: Anticipated date of discharge uncertain at this time. Anticipated length of stay greater than 48 hours inpatient admission status. The patient remains high level of medical complexity, high risk for morbidity and/or mortality, seco ndary to the issues as outlined above. /[id number]/MODL
[2017-01-29] MEDS: ACETAMINOPHEN 325 MG TAB PO PRN ×2 (03:48→14:52)
[2017-01-29] MEDS: VANCOMYCIN HCL/NORMAL SALINE 250 ML IV SCH (03:49)
[2017-01-29 05:41] LABS: % IMMATURE GRANULYOCYTES 0.5 % (0.0-1.1); ABSOLUTE IMMATURE GRANULOCYTES 0.05 10^3/uL (0.00-0.10); ADD DIFF? NO; ADD MORPH? NO; ADD SCAN? NO; ATYPICAL LYMPHOCYTE FLAG 0 (0-99); FRAGMENT RBC FLAG 0 (0-99); HEMATOCRIT 35.1 % (40.0-51.0); HEMOGLOBIN 11.6 g/dL (13.7-17.5); LEFT SHIFT FLG 10 (0-99); LIPEMIA HEMOLYSIS FLAG 80 (0-99); MEAN CELL HEMOGLOBIN 28.9 pg (27.9-34.1); MEAN CELL VOLUME 87.3 fL (81.5-99.8); MEAN PLATELET VOLUME 11.2 fL (8.7-11.7); PLATELET CLUMPS FLAG 0 (0-99); PLATELET COUNT 112 10^3/uL (150-400); RED BLOOD CELL COUNT 4.02 10^6/uL (4.40-6.38); RED CELL DISTRIBUTION WIDTH 15.1 % (11.5-15.2)
[2017-01-29] MEDS: PIPERACILLIN/TAZO 4.5 GM/DEX 100 ML IV SCH (05:59)
[2017-01-29 06:06] LABS: ANION GAP 9 mEq/L (8-16); CALCIUM 7.8 mg/dL (8.5-10.4); CARBON DIOXIDE 18 mEq/l (22-31); CHLORIDE 113 mEq/L (97-110); CREATININE 0.5 mg/dL (0.7-1.3); GLOMERULAR FILTRATION RATE > 60; GLUCOSE 94 mg/dL (70-100); POTASSIUM 3.4 mEq/L (3.5-5.2); SODIUM 140 mEq/L (134-144)
[2017-01-29] MEDS: ENOXAPARIN 80 MG/0.8 ML SYR SC SCH ×2 (09:00→20:47)
[2017-01-29] MEDS: TRIAMCINOLONE 0.1% 15 GM CRTUBE TP SCH ×2 (09:02→20:47)
[2017-01-29] MEDS: NYSTATIN POWDER 15 GM BTL TP SCH ×2 (09:02→20:47)
[2017-01-29] MEDS: DESOXIMETASONE 0.25% TP SCH ×2 (09:04→20:47)
[2017-01-29] MEDS: MULTIVITAMINS 1 EACH TAB PO SCH (09:07)
[2017-01-29] MEDS: OXYBUTYNIN 5 MG EXT REL TAB PO SCH (09:07)
[2017-01-29] MEDS ORDERED: WARFARIN SODIUM 2.5 MG TAB PO ONE (09:08)
--- NOTE | 2017-01-29 10:08 | PCMIDPN ---
Assessment/Plan: Assessment/Plan: * Severe sepsis with likely etiology left lower extremity cellulitis: Continued clinical improvement with antibiotic therapy. Erythema over left lower extremity significantly less intense and has started to recede from demarcated lines. Appearance consistent with streptococcal etiology. Blood cultures remain negative. Will transition vancomycin and Zosyn to cefazolin targeting MSSA (urine previously colonized with MSSA in September) and beta- hemolytic streptococci. Continue left lower extremity elevation. He is now also receiving anticoagulation for DVT of left lower extremity. * Mild left groin intertrigo: Continue nystatin powder. * Left lower extremity pressure ulceration: Continue local wound care and pressure offloading. * Positive urine culture: Culture showing growth of E coli and Enterococcus faecalis. Do not think these are likely etiology for sepsis as alternative diagnosis present in the form of cellulitis. Do not plan targeted therapy for these organisms. * Diarrhea: Likely antibiotic associated. May improve once Zosyn discontinued. Imodium as needed. Do not think likely related to C difficile given short duration of antibiotic therapy and frequent diarrhea with antibiotic exposure historically. 01/29/17 10:05 01/29/17 10:10 Subjective: Feels better today. No further chills. Complains of diarrhea. Objective: Vital Signs Temp Pulse Resp BP Pulse Ox 36.7 C 81 18 123/75 H 95 01/29/17 07:59 01/29/17 07:59 01/29/17 07:59 01/29/17 07:59 01/29/17 07:59 Laboratory Results 01/29/17 05:00 01/29/17 05:00 01/28/17 01/29/17 01/30/17 05:59 05:59 05:59 Intake Total 4617 4155 Output Total 950 925 Balance 3667 3230 Vancomycin # 2 Zosyn # 2 Blood cultures x2 no growth Urine culture with greater than 100,000 E coli and 40-50K Enterococcus faecalis Ultrasound shows left lower 50,000 Enterococcus faecalis - Physical Exam General Appearance: alert, no apparent distress EENT: No thrush Respiratory: lungs clear, No respiratory distress Cardiac/Chest: regular rate, rhythm, No systolic murmur Extremities: inflammation (Left lower extremity with significantly less intense erythema which has receded from demarcated lines at superior aspect; no bulla or focal areas of fluctuance; 2+ dorsalis pedis pulse present) Abdomen: non-tender, No distended Skin: other (Pressure ulcerations over left lower extremity without change; no signs of infection) ICD10 Worksheet Patient Problems: Problems Problem Status Onset Pneumonia Acute Urinary tract infection Acute Infection due to resistant organism Active Cellulitis Acute Vancomycin resistant enterococcus culture positive Acute 01/23/16
[2017-01-29] MEDS: ceFAZolin 2 GM/DEXTROSE 100 ML IV SCH ×2 (14:43→22:08)
[2017-01-29] MEDS: LOPERAMIDE HCL 2 MG CAP PO PRN ×2 (14:53→22:08)
[2017-01-29] MEDS: WARFARIN SODIUM 5 MG TAB PO SCH (15:55)
--- NOTE | 2017-01-29 20:34 | HOSPPROG ---
Hospitalist Progress Note Assessment/Plan: Assessment: 66 yo M p/w severe sepsis in setting of cellulitis and DVT Plan: 1. Severe sepsis. POA, 2/2 cellulitis - s/p IVF and Abx - cont monitor CBC/Fever curve 2. Cellulitis. LLE, responded to combination of Vanco/Zosyn, d/w Dr. Machuca and plan to narrow coverage to Ancef today given that strep is suspected organism - wound care consultation appreciated 3. DVT. POA, LLE calf on US - started on lovenox bridge to coumadin - counseled patient regarding bleeding risks today - monitor daily INR 4. Pressure Injury. POA, ongoing wound care 5. Paralysis. Bilat LE, 2/2 transverse myelitis, therapy Diet. Regular PPx. High risk, on lovenox Code. Full per patient Dispo. ADD uncertain, requiring IV Abx adjustments today and gauging response Subjective: counseled patient regarding diarrhea, affected area of cellulitis Objective: Vital Signs Temp Pulse Resp BP Pulse Ox 36.8 C 88 16 108/48 L 98 01/29/17 20:00 01/29/17 20:00 01/29/17 20:00 01/29/17 20:00 01/29/17 20:00 Laboratory Results 01/29/17 05:00 01/29/17 05:00 01/28/17 01/29/17 01/30/17 05:59 05:59 05:59 Intake Total 4617 4155 200 Output Total 950 925 850 Balance 3667 3230 -650 PT 14.6 SEC (12.0-15.0) 01/27/17 10:45 INR 1.15 (0.83-1.16) 01/27/17 10:45 - Time Spent With Patient Time Spent with Patient: greater than 35 minutes Time Spent with Patient: Greater than 35 minutes spent on this patients care, greater than 50% of time spent counseling, educating, and coordinating care regarding the above mentioned plan. - Physical Exam Constitutional: no apparent distress, not in pain Cardiovascular: regular rate and rhythym, no murmur, rub, or gallop, edema (LLE 1+) Respiratory: no respiratory distress, no rales or rhonchi, clear to auscultation Gastrointestinal: normoactive bowel sounds, soft, non-tender abdomen, no palpable masses Skin: other (blanchable erythema LLE, improving from day prior, receding from margins) Neurologic: AAOx3, sensation intact bilaterally (absent sensation bilat LE) Psychiatric: interacting appropriately, not anxious, not encephalopathic, thought process linear ICD10 Worksheet Patient Problems: Problems Problem Status Onset Infection due to resistant organism Active Vancomycin resistant enterococcus culture positive Acute 01/23/16 Cellulitis Acute Urinary tract infection Acute Pneumonia Acute
[2017-01-30] MEDS: ACETAMINOPHEN 325 MG TAB PO PRN (03:32)
[2017-01-30 05:34] LABS: % IMMATURE GRANULYOCYTES 0.5 % (0.0-1.1); ABSOLUTE IMMATURE GRANULOCYTES 0.04 10^3/uL (0.00-0.10); ADD DIFF? NO; ADD MORPH? NO; ADD SCAN? NO; ATYPICAL LYMPHOCYTE FLAG 20 (0-99); FRAGMENT RBC FLAG 0 (0-99); HEMATOCRIT 35.6 % (40.0-51.0); HEMOGLOBIN 11.8 g/dL (13.7-17.5); LEFT SHIFT FLG 10 (0-99); LIPEMIA HEMOLYSIS FLAG 80 (0-99); MEAN CELL HEMOGLOBIN CONCENTR. 33.1 g/dL (32.4-36.7); MEAN CELL VOLUME 87.5 fL (81.5-99.8); MEAN PLATELET VOLUME 10.7 fL (8.7-11.7); PLATELET CLUMPS FLAG 0 (0-99); PLATELET COUNT 123 10^3/uL (150-400); RED BLOOD CELL COUNT 4.07 10^6/uL (4.40-6.38); RED CELL DISTRIBUTION WIDTH 14.7 % (11.5-15.2)
[2017-01-30 05:43] LABS: INR 1.23 (0.83-1.16); PROTIME(PATIENT) 15.5 SEC (12.0-15.0)
[2017-01-30 05:57] LABS: ANION GAP 9 mEq/L (8-16); CALCIUM 8.3 mg/dL (8.5-10.4); CARBON DIOXIDE 21 mEq/l (22-31); CHLORIDE 110 mEq/L (97-110); CREATININE 0.6 mg/dL (0.7-1.3); GLOMERULAR FILTRATION RATE > 60; GLUCOSE 90 mg/dL (70-100); POTASSIUM 3.5 mEq/L (3.5-5.2); SODIUM 140 mEq/L (134-144)
[2017-01-30] MEDS: ceFAZolin 2 GM/DEXTROSE 100 ML IV SCH ×3 (06:15→22:12)
--- NOTE | 2017-01-30 10:09 | PCMIDPN ---
Assessment/Plan: 1. Sepsis secondary to left lower extremity cellulitis: The patient is now on Ancef monotherapy. Improvement is sluggish, although leg is certainly better compared with admission. I explained to the patient that he needs to keep his left lower extremity elevated above his heart at all times if possible. I also talked to the nurse, as I would like him to get a thorough shower Today. No other new recommendations. 2. Diarrhea: Better. Likely secondary to antibiotics. Subjective: in good spirits. Feels that his leg is improving. Diarrhea better. No nausea or vomiting today, although he did retch once yesterday. Objective: Ancef 2 g IV q.8 hours day 1. (Antibiotics day 3) Afebrile Vital Signs Temp Pulse Resp BP Pulse Ox 36.9 C 82 18 133/86 H 96 01/30/17 08:00 01/30/17 08:00 01/30/17 08:00 01/30/17 08:00 01/30/17 08:00 Laboratory Results 01/30/17 05:16 01/30/17 05:16 01/29/17 01/30/17 01/31/17 05:59 05:59 05:59 Intake Total 4155 200 Output Total 925 2250 Balance 3230 -2050 blood cultures negative on the - Physical Exam General Appearance: alert, no apparent distress Respiratory: lungs clear Extremities: other ( left lower extremity edematous And warm. Blanching erythema notable, but better compared with admission per the patient. Erythema is starting to recede inside of the demarcated margins. Lateral to his knee, the patient has 2 small dime sized excoriations that are covered. There is no surrounding erythema. He does have some skin sloughing on the dorsal and plantar aspects of both feet secondary to an allergic reaction to tea tree oil.) ICD10 Worksheet Patient Problems: Problems Problem Status Onset Pneumonia Acute Urinary tract infection Acute Infection due to resistant organism Active Cellulitis Acute Vancomycin resistant enterococcus culture positive Acute 01/23/16
[2017-01-30] MEDS: ENOXAPARIN 80 MG/0.8 ML SYR SC SCH ×2 (10:51→22:11)
[2017-01-30] MEDS: MULTIVITAMINS 1 EACH TAB PO SCH (10:51)
[2017-01-30] MEDS: OXYBUTYNIN 5 MG EXT REL TAB PO SCH (10:52)
[2017-01-30] MEDS: LOPERAMIDE HCL 2 MG CAP PO PRN (10:52)
[2017-01-30] MEDS: NYSTATIN POWDER 15 GM BTL TP SCH ×2 (15:41→22:11)
[2017-01-30] MEDS: TRIAMCINOLONE 0.1% 15 GM CRTUBE TP SCH ×2 (15:41→22:12)
[2017-01-30] MEDS: DESOXIMETASONE 0.25% TP SCH ×2 (15:41→22:10)
[2017-01-30] MEDS: WARFARIN SODIUM 5 MG TAB PO SCH (15:42)
--- NOTE | 2017-01-30 22:06 | HOSPPROG ---
Hospitalist Progress Note Assessment/Plan: Assessment: 66 yo M p/w severe sepsis in setting of cellulitis and DVT Plan: 1. Severe sepsis. POA, 2/2 cellulitis 2. Cellulitis. LLE, responded to combination of Vanco/Zosyn, sluggish but continual improvement now on monotherapy w/ Ancef for suspected staph/strep organisms - receding from margins, remains erythematous/blanchable 3. DVT. POA, LLE calf on US - started on lovenox bridge to coumadin - monitor daily INR 4. Pressure Injury. POA, ongoing wound care 5. Paralysis. Bilat LE, 2/2 transverse myelitis, therapy 6. Metabolic Acidosis. Acute, 2/2 lactic acid, resolved 7. Diarrhea. Likely abx-assoc, PRN immodium Diet. Regular PPx. High risk, on lovenox Code. Full per patient Dispo. ADD 01/31, pending additional 24hrs of improvement Subjective: less diarrhea Objective: Vital Signs Temp Pulse Resp BP Pulse Ox 37.0 C 93 18 118/54 L 94 01/30/17 19:22 01/30/17 19:22 01/30/17 19:22 01/30/17 19:22 01/30/17 19:22 Laboratory Results 01/30/17 05:16 01/30/17 05:16 01/29/17 01/30/17 01/31/17 05:59 05:59 05:59 Intake Total 4155 200 100 Output Total 925 2250 1900 Balance 3230 -2050 -1800 PT 15.5 SEC (12.0-15.0) H 01/30/17 05:16 INR 1.23 (0.83-1.16) H 01/30/17 05:16 - Time Spent With Patient Time Spent with Patient: greater than 35 minutes Time Spent with Patient: Greater than 35 minutes spent on this patients care, greater than 50% of time spent counseling, educating, and coordinating care regarding the above mentioned plan. - Pending Discharge Pending Discharge Within 24 Hours: Yes Pending Discharge Date: 01/31/17 Pending Discharge Time: 11:00 - Physical Exam Constitutional: no apparent distress, appears nourished, not in pain Cardiovascular: regular rate and rhythym, no murmur, rub, or gallop Gastrointestinal: normoactive bowel sounds, soft, non-tender abdomen, no palpable masses Skin: other (confluent blanchable erythema w/ soft tissue edema, no tenderness, receding from margins) Neurologic: other (absent sensation/motor bilat LE) Psychiatric: interacting appropriately, not anxious, not encephalopathic, thought process linear ICD10 Worksheet Patient Problems: Problems Problem Status Onset Pneumonia Acute Urinary tract infection Acute Infection due to resistant organism Active Cellulitis Acute Vancomycin resistant enterococcus culture positive Acute 01/23/16
[2017-01-31] MEDS: ACETAMINOPHEN 325 MG TAB PO PRN (05:59)
[2017-01-31] MEDS: ceFAZolin 2 GM/DEXTROSE 100 ML IV SCH ×3 (05:59→22:40)
[2017-01-31 06:05] LABS: % IMMATURE GRANULYOCYTES 0.4 % (0.0-1.1); ABSOLUTE IMMATURE GRANULOCYTES 0.03 10^3/uL (0.00-0.10); ADD DIFF? NO; ADD MORPH? NO; ADD SCAN? NO; ATYPICAL LYMPHOCYTE FLAG 40 (0-99); FRAGMENT RBC FLAG 0 (0-99); HEMATOCRIT 36.7 % (40.0-51.0); HEMOGLOBIN 12.2 g/dL (13.7-17.5); LEFT SHIFT FLG 0 (0-99); LIPEMIA HEMOLYSIS FLAG 80 (0-99); MEAN CELL HEMOGLOBIN 28.7 pg (27.9-34.1); MEAN CELL HEMOGLOBIN CONCENTR. 33.2 g/dL (32.4-36.7); MEAN CELL VOLUME 86.4 fL (81.5-99.8); MEAN PLATELET VOLUME 10.9 fL (8.7-11.7); PLATELET CLUMPS FLAG 0 (0-99); PLATELET COUNT 145 10^3/uL (150-400); RED BLOOD CELL COUNT 4.25 10^6/uL (4.40-6.38); RED CELL DISTRIBUTION WIDTH 14.8 % (11.5-15.2)
[2017-01-31 06:12] LABS: INR 1.36 (0.83-1.16); PROTIME(PATIENT) 16.8 SEC (12.0-15.0)
[2017-01-31 06:32] LABS: ANION GAP 8 mEq/L (8-16); CALCIUM 8.4 mg/dL (8.5-10.4); CARBON DIOXIDE 22 mEq/l (22-31); CHLORIDE 109 mEq/L (97-110); CREATININE 0.5 mg/dL (0.7-1.3); GLOMERULAR FILTRATION RATE > 60; GLUCOSE 76 mg/dL (70-100); POTASSIUM 3.7 mEq/L (3.5-5.2); SODIUM 139 mEq/L (134-144)
--- NOTE | 2017-01-31 08:29 | PCMIDPN ---
Assessment/Plan: 1. Sepsis secondary to left lower extremity cellulitis: Much better today! Skin is puckering, and skin is much less beet red. Continue Ancef monotherapy. No new recommendations. Continue IV therapy And leg elevation. 2. Diarrhea: Better. Likely secondary to antibiotics. 01/31/17 08:27 01/31/17 08:29 Subjective: In good spirits. Shaving. Diarrhea seems slightly better. His left lower extremity is much less red today and less swollen. He is happy to see the progress. Objective: Ancef 2 g IV q.8 hours day 2. (antibiotics day 4) T-max 37deg Vital Signs Temp Pulse Resp BP Pulse Ox 36.9 C 84 18 113/81 H 96 01/31/17 04:00 01/31/17 07:13 01/31/17 04:00 01/31/17 07:13 01/31/17 04:00 Laboratory Results 01/31/17 05:37 01/31/17 05:37 01/30/17 01/31/17 02/01/17 05:59 05:59 05:59 Intake Total 200 100 Output Total 2250 2900 Balance -2049 -2800 daylin no new microbiology - Physical Exam General Appearance: alert, no apparent distress Extremities: other ( left lower extremity much better compared with yesterday. Skin is pinkish and erythema receding inside of margins even more compared with yesterday. Edema better. Overall significant improvement.) ICD10 Worksheet Patient Problems: Problems Problem Status Onset Pneumonia Acute Urinary tract infection Acute Infection due to resistant organism Active Cellulitis Acute Vancomycin resistant enterococcus culture positive Acute 01/23/16
[2017-01-31] MEDS: DESOXIMETASONE 0.25% TP SCH ×2 (11:33→22:41)
[2017-01-31] MEDS: ENOXAPARIN 80 MG/0.8 ML SYR SC SCH ×2 (11:34→22:40)
[2017-01-31] MEDS: OXYBUTYNIN 5 MG EXT REL TAB PO SCH (11:35)
[2017-01-31] MEDS: MULTIVITAMINS 1 EACH TAB PO SCH (11:35)
[2017-01-31] MEDS: NYSTATIN POWDER 15 GM BTL TP SCH ×2 (11:36→22:41)
[2017-01-31] MEDS: TRIAMCINOLONE 0.1% 15 GM CRTUBE TP SCH ×2 (11:36→22:51)
--- NOTE | 2017-01-31 14:32 | HOSPPROG ---
Hospitalist Progress Note Assessment/Plan: 1. Severe sepsis. POA, 2/2 cellulitis 2. Cellulitis. LLE * improving * continue IV Ancef 3. DVT. POA, LLE calf on US - started on lovenox bridge to coumadin - monitor daily INR * urinary tract infection * does have small amounts of VRE along with Pseudomonas * most likely colonization 4. Pressure Injury. POA, ongoing wound care 5. Paralysis. Bilat LE, 2/2 transverse myelitis, therapy 6. Metabolic Acidosis. Acute, 2/2 lactic acid, resolved 7. Diarrhea. Likely abx-assoc, PRN immodium Subjective: leg is feeling better Objective: Vital Signs Temp Pulse Resp BP Pulse Ox 36.5 C 77 14 117/51 L 94 01/31/17 12:00 01/31/17 12:00 01/31/17 12:00 01/31/17 12:00 01/31/17 12:00 Laboratory Results 01/31/17 05:37 01/31/17 05:37 01/30/17 01/31/17 02/01/17 05:59 05:59 05:59 Intake Total 200 100 Output Total 2250 2900 Balance -2050 -2800 PT 16.8 SEC (12.0-15.0) H 01/31/17 05:37 INR 1.36 (0.83-1.16) H 01/31/17 05:37 discussed with Infectious Disease - Physical Exam Constitutional: no apparent distress, appears nourished, not in pain Eyes: anicteric sclera, EOMI Ears, Nose, Mouth, Throat: moist mucous membranes, hearing normal Cardiovascular: regular rate and rhythym, no murmur, rub, or gallop Respiratory: no respiratory distress Musculoskeletal: other ( improving erythema right lower extremity) Neurologic: AAOx3 Psychiatric: interacting appropriately, not anxious, not encephalopathic, thought process linear ICD10 Worksheet Patient Problems: Problems Problem Status Onset Pneumonia Acute Urinary tract infection Acute Infection due to resistant organism Active Cellulitis Acute Vancomycin resistant enterococcus culture positive Acute 01/23/16
[2017-01-31] MEDS: WARFARIN SODIUM 5 MG TAB PO SCH (16:32)
[2017-02-01] MEDS: ceFAZolin 2 GM/DEXTROSE 100 ML IV SCH ×2 (05:18→14:25)
[2017-02-01 05:54] LABS: INR 1.44 (0.83-1.16); PROTIME(PATIENT) 17.5 SEC (12.0-15.0)
[2017-02-01] MEDS: ACETAMINOPHEN 325 MG TAB PO PRN ×2 (07:49→20:04)
--- NOTE | 2017-02-01 08:03 | PCMIDPN ---
Assessment/Plan: 1. Sepsis secondary to left lower extremity cellulitis: Cellulitis continues to improve every day. I told him he would likely be here through Thursday, at which point we would determine whether not he needs to continue IV therapy verses the ability to change to oral therapy. Suspected maybe the former. Continue Ancef. 2. Diarrhea: Better. Likely secondary to antibiotics. Subjective: In good spirits, as usual. Diarrhea better. Left lower extremity erythema and swelling continues to improve. Objective: Ancef 2 g IV q.8 hours day 3. (antibiotics day 4) T-max 37degrees Vital Signs Temp Pulse Resp BP Pulse Ox 36.7 C 84 19 136/72 H 95 01/31/17 22:57 01/31/17 22:57 01/31/17 22:57 01/31/17 22:57 01/31/17 22:57 Laboratory Results 01/31/17 05:37 01/31/17 05:37 01/31/17 02/01/17 02/02/17 05:59 05:59 05:59 Intake Total 100 650 Output Total 2900 4100 Balance -2800 -3450 No new microbiology - Physical Exam General Appearance: alert, no apparent distress Extremities: other (Left lower extremity is still warm, but erythema is more of a pinkish discoloration now. Continues to receded inside margins. Edema is markedly improved.) ICD10 Worksheet Patient Problems: Problems Problem Status Onset Pneumonia Acute Urinary tract infection Acute Infection due to resistant organism Active Cellulitis Acute Vancomycin resistant enterococcus culture positive Acute 01/23/16
[2017-02-01] MEDS ORDERED: WARFARIN SODIUM 5 MG TAB PO ONE (11:10)
[2017-02-01] MEDS: TRIAMCINOLONE 0.1% 15 GM CRTUBE TP SCH ×2 (11:11→20:08)
[2017-02-01] MEDS: DESOXIMETASONE 0.25% TP SCH ×2 (11:11→20:06)
[2017-02-01] MEDS: NYSTATIN POWDER 15 GM BTL TP SCH ×2 (11:11→20:07)
--- NOTE | 2017-02-01 11:11 | HOSPPROG ---
Hospitalist Progress Note Assessment/Plan: 1. Severe sepsis. POA, 2/2 cellulitis 2. Cellulitis. LLE * improving * continue IV Ancef 3. DVT. POA, LLE calf on US - started on lovenox bridge to coumadin - give a dose of 10 mg today * urinary tract infection * does have small amounts of VRE along with Pseudomonas * most likely colonization 4. Pressure Injury. POA, ongoing wound care 5. Paralysis. Bilat LE, 2/2 transverse myelitis, therapy 6. Metabolic Acidosis. Acute, 2/2 lactic acid, resolved 7. Diarrhea. Likely abx-assoc, PRN immodium Subjective: no new complaints Objective: Vital Signs Temp Pulse Resp BP Pulse Ox 36.7 C 81 18 133/71 H 96 02/01/17 08:00 02/01/17 08:00 02/01/17 08:00 02/01/17 08:00 02/01/17 08:00 Laboratory Results 01/31/17 05:37 01/31/17 05:37 01/31/17 02/01/17 02/02/17 05:59 05:59 05:59 Intake Total 100 650 Output Total 2900 4100 Balance -2800 -3450 PT 17.5 SEC (12.0-15.0) H 02/01/17 05:10 INR 1.44 (0.83-1.16) H 02/01/17 05:10 - Physical Exam Constitutional: no apparent distress, appears nourished, not in pain Eyes: anicteric sclera, EOMI Ears, Nose, Mouth, Throat: moist mucous membranes, ears appear normal Cardiovascular: regular rate and rhythym Respiratory: no respiratory distress Musculoskeletal: other ( improving erythema left leg) Neurologic: AAOx3 Psychiatric: interacting appropriately, not anxious, not encephalopathic, thought process linear ICD10 Worksheet Patient Problems: Problems Problem Status Onset Pneumonia Acute Urinary tract infection Acute Infection due to resistant organism Active Cellulitis Acute Vancomycin resistant enterococcus culture positive Acute 01/23/16
[2017-02-01] MEDS: OXYBUTYNIN 5 MG EXT REL TAB PO SCH (11:50)
[2017-02-01] MEDS: MULTIVITAMINS 1 EACH TAB PO SCH (11:50)
[2017-02-01] MEDS: ENOXAPARIN 80 MG/0.8 ML SYR SC SCH ×2 (11:50→20:04)
[2017-02-02] MEDS: ceFAZolin 2 GM/DEXTROSE 100 ML IV SCH ×4 (02:01→22:33)
[2017-02-02 05:14] LABS: INR 1.78 (0.83-1.16); PROTIME(PATIENT) 20.8 SEC (12.0-15.0)
[2017-02-02] MEDS ORDERED: WARFARIN SODIUM 7.5 MG TAB PO ONE (09:10)
--- NOTE | 2017-02-02 09:13 | PCMIDPN ---
Assessment/Plan: 1. Sepsis secondary to left lower extremity cellulitis: Cellulitis continues to improve every day! Significant improvement today even compared with yesterday. Jimi and I talked about the plan; both of us would prefer to keep him here another day and then likely transition to oral antibiotics tomorrow, to err on the side of caution in the context of [place]. Continue leg elevation. 2. Diarrhea: Resolved. Likely secondary to antibiotics. 02/02/17 09:10 Subjective: Leg continues to improve. Much less swollen today, much less warm. Tells me that diarrhea has resolved. Objective: Ancef 2 g IV q.8 hours day 4 (antibiotics day 5) T-max 37degrees Vital Signs Temp Pulse Resp BP Pulse Ox 36.5 C 82 16 136/84 H 98 02/02/17 08:00 02/02/17 08:00 02/02/17 08:00 02/02/17 08:00 02/02/17 08:00 Laboratory Results 01/31/17 05:37 01/31/17 05:37 02/01/17 02/02/17 02/03/17 05:59 05:59 05:59 Intake Total 650 1500 Output Total 4100 4000 Balance -3450 -2500 blood cultures remain sterile - Physical Exam General Appearance: alert, no apparent distress EENT: pharynx normal, No scleral icterus Respiratory: lungs clear Extremities: other ( left lower extremity: Swelling practically resolved. erythema now more of a light pinkish discoloration. Cellulitis on the dorsum of his foot is gone, as well as around the ankle. Pretibial area still is a bit pink, with a few pinkish macules. Overall significant improvement. skin exfoliating plantar aspect from prior tea tree oil) ICD10 Worksheet Patient Problems: Problems Problem Status Onset Pneumonia Acute Urinary tract infection Acute Infection due to resistant organism Active Cellulitis Acute Vancomycin resistant enterococcus culture positive Acute 01/23/16
[2017-02-02] MEDS: MULTIVITAMINS 1 EACH TAB PO SCH (09:33)
[2017-02-02] MEDS: OXYBUTYNIN 5 MG EXT REL TAB PO SCH (09:33)
[2017-02-02] MEDS: ENOXAPARIN 80 MG/0.8 ML SYR SC SCH ×2 (09:33→20:02)
[2017-02-02] MEDS: DESOXIMETASONE 0.25% TP SCH ×2 (09:38→20:01)
[2017-02-02] MEDS: NYSTATIN POWDER 15 GM BTL TP SCH ×2 (09:38→20:01)
[2017-02-02] MEDS: TRIAMCINOLONE 0.1% 15 GM CRTUBE TP SCH ×2 (09:38→20:06)
--- NOTE | 2017-02-02 11:33 | HOSPPROG ---
Hospitalist Progress Note Assessment/Plan: 1. Severe sepsis. POA, 2/2 cellulitis 2. Cellulitis. LLE * improving * continue IV Ancef * Probable home tomorrow 3. DVT. POA, LLE calf on US * He is going to be out of town for the next month and will not be able to get blood drawn for INR * Will switch to Xarelto tomorrow once I know what his INR is * urinary tract infection * does have small amounts of VRE along with Pseudomonas * most likely colonization 4. Pressure Injury. POA, ongoing wound care 5. Paralysis. Bilat LE, 2/2 transverse myelitis, therapy 6. Metabolic Acidosis. Acute, 2/2 lactic acid, resolved 7. Diarrhea. Likely abx-assoc, PRN immodium Subjective: No new complaints Objective: Vital Signs Temp Pulse Resp BP Pulse Ox 36.5 C 82 16 136/84 H 98 02/02/17 08:00 02/02/17 08:00 02/02/17 08:00 02/02/17 08:00 02/02/17 08:00 Laboratory Results 01/31/17 05:37 01/31/17 05:37 02/01/17 02/02/17 02/03/17 05:59 05:59 05:59 Intake Total 650 1500 Output Total 4100 4000 Balance -3450 -2500 PT 20.8 SEC (12.0-15.0) H 02/02/17 04:44 INR 1.78 (0.83-1.16) H 02/02/17 04:44 Discussed Infectious Disease - Physical Exam Constitutional: no apparent distress, appears nourished, not in pain Eyes: anicteric sclera, EOMI Cardiovascular: regular rate and rhythym Respiratory: no respiratory distress Musculoskeletal: other (Improving lower extremity erythema) Neurologic: AAOx3 Psychiatric: interacting appropriately, not anxious, not encephalopathic, thought process linear ICD10 Worksheet Patient Problems: Problems Problem Status Onset Pneumonia Acute Urinary tract infection Acute Infection due to resistant organism Active Cellulitis Acute Vancomycin resistant enterococcus culture positive Acute 01/23/16
[2017-02-02] MEDS: ceFAZolin 2 GM in D5W 100 ML IV SCH (22:39)
[2017-02-03] MEDS: ceFAZolin 2 GM in D5W 100 ML IV SCH (05:07)
[2017-02-03 05:15] LABS: INR 1.65 (0.83-1.16); PROTIME(PATIENT) 19.6 SEC (12.0-15.0)
[2017-02-03 07:23] VITALS: BP 95/93; PULSE 82; RESP 14; TEMP 97.4; O2SAT 96
--- NOTE | 2017-02-03 10:24 | PCMIDPN ---
Assessment/Plan: Assessment/Plan: * Severe sepsis with etiology left lower extremity cellulitis: Marked clinical improvement. Minimal residual erythema over anterior sanchez. Likely due to beta- hemolytic streptococci or MSSA. Plan transition to Augmentin 875 mg twice daily x7 additional days. Will have follow-up in my office next week for repeat assessment. * Left lower extremity pressure ulceration: Improving with pressure offloading. * Diarrhea: Likely antibiotic associated. Now resolved. 02/03/17 10:21 Subjective: Diarrhea resolved. Erythema over left lower extremity markedly decreased. Objective: Vital Signs Temp Pulse Resp BP Pulse Ox 36.3 C 82 14 95/93 H 96 02/03/17 07:22 02/03/17 07:22 02/03/17 07:22 02/03/17 07:22 02/03/17 07:22 Laboratory Results 01/31/17 05:37 01/31/17 05:37 02/02/17 02/03/17 02/04/17 05:59 05:59 05:59 Intake Total 1500 Output Total 4000 4825 Balance -2500 -4825 Cefazolin # 5 (antibiotics # 6) Blood cultures x2 no growth - Physical Exam General Appearance: alert, no apparent distress EENT: pharynx normal, No scleral icterus Extremities: inflammation (Erythema over left lower extremity largely resolved except for small patch over anterior sanchez; desquamation of skin skin over foot consistent with resolving cellulitis) Abdomen: non-tender Skin: other (Pressure ulceration over left lower extremity with improved appearance in no surrounding cellulitis) Lymphatic: other (Left lower extremity lymphangitis resolved) ICD10 Worksheet Patient Problems: Problems Problem Status Onset Pneumonia Acute Urinary tract infection Acute Infection due to resistant organism Active Cellulitis Acute Vancomycin resistant enterococcus culture positive Acute 01/28/16
[2017-02-03] MEDS: OXYBUTYNIN 5 MG EXT REL TAB PO SCH (10:45)
[2017-02-03] MEDS: MULTIVITAMINS 1 EACH TAB PO SCH (10:46)
[2017-02-03] MEDS: DESOXIMETASONE 0.25% TP SCH (10:47)
[2017-02-03] MEDS: NYSTATIN POWDER 15 GM BTL TP SCH (10:48)
[2017-02-03] MEDS: TRIAMCINOLONE 0.1% 15 GM CRTUBE TP SCH (10:48)
[2017-02-03] MEDS: ENOXAPARIN 80 MG/0.8 ML SYR SC SCH (10:55)
--- NOTE | 2017-02-03 14:48 | GDS ---
[f rep st] DISCHARGE SUMMARY DISCHARGE DIAGNOSIS: 1. Left lower extremity cellulitis. 2. Left calf deep venous thrombosis. 3. Paraplegia. 4. Pressure injury present on admission. HISTORY: This is a 66-year-old male with a history of paraplegia. He presented with left lower ext remity cellulitis. HOSPITAL COURSE: Patient was admitted and ultrasound showed DVT. He was started on Lovenox and Cou madin at that time. He was also treated with IV antibiotics. We tried IV Ancef for his cellulitis. His cellulitis improved slowly. It was then determined the patient was going to be at a retreat f or a month and, thus, his Coumadin was switched over to Xarelto in order so he would not need any mo nitoring. He will be discharged home and he will follow up with Infectious Disease before he leaves to his ret reat. DISPOSITION: Home. DISCHARGE MEDICATIONS: He is to continue his home medicines. In addition, he will be given Augment in 875 mg twice daily for 7 more days and Xarelto. FOLLOWUP INSTRUCTIONS: He is instructed to follow up with Infectious Disease later this week and wi th his primary care doctor when he comes back from his retreat. TIME SPENT: Greater than 30 minutes was spent on discharge. /[id number]/MODL
== END 2017-02-03 13:55 | disposition home or self-care (01) | DRG 871 ==
LOC: F2N 15:52 → F3E 01-28 18:07
PROVIDERS: ADMIT Internal Medicine; ATTEND Internal Medicine
DX: A41.9 Sepsis, unspecified organism (principal); R65.20 Severe sepsis without septic shock; L03.115 Cellulitis of right lower limb; L03.116 Cellulitis of left lower limb; L89.893 Pressure ulcer of other site, stage 3; N39.0 Urinary tract infection, site not specified; E87.2 Acidosis; I82.402 Acute embolism and thrombosis of unspecified deep veins of left lower extremity; G82.20 Paraplegia, unspecified; G65.0 Sequelae of Guillain-Barre syndrome; G37.3 Acute transverse myelitis in demyelinating disease of central nervous system; K52.1 Toxic gastroenteritis and colitis; T36.95XA Adverse effect of unspecified systemic antibiotic, initial encounter; L30.4 Erythema intertrigo; Z99.3 Dependence on wheelchair; Z87.440 Personal history of urinary (tract) infections
CPT/HCPCS: 96365; 97162-GP; 97165-GO; 97530-GP; G8978-GP-CJ; G8979-GP-CI; G8987-GO-CI; G8988-GO-CI; G8989-GO-CI; J0690; J0692; J1650; J2543; J3370

== ENCOUNTER → 2017-03-26 | Outpatient (CLI) | payer OTHER, MEDICAID | LOC: FIMAGING 16:03 | PROVIDERS: ATTEND Orthopaedic Surgery Hand Surgery | DX: M75.112 Incomplete rotator cuff tear or rupture of left shoulder, not specified as traumatic (principal); M75.22 Bicipital tendinitis, left shoulder; M19.012 Primary osteoarthritis, left shoulder ==

== ENCOUNTER 2017-04-14 05:41 | Inpatient (IN) | payer OTHER, MEDICAID ==
--- NOTE | 2017-04-07 14:43 | CPEKG ---
Heart Rate: 80 RR Interval: 750 P-R Interval: 140 QRSD Interval: 84 QT Interval: 372 QTC Interval: 430 P Alvord: 84 QRS Alvord: 92 T Wave Alvord: 46 EKG Severity - ABNORMAL ECG - EKG Impression: SINUS RHYTHM EKG Impression: PROBABLE RIGHT VENTRICULAR HYPERTROPHY Electronically Signed By: German Tran 09-Apr-2017 09:10:28
[2017-04-14] MEDS ORDERED: LIDOCAINE 1% 2 ML INJ ID PRN (05:58)
[2017-04-14] MEDS ORDERED: LR 1,000 ML IV ONE (05:58)
[2017-04-14] MEDS ORDERED: BUPIVACAINE 0.5% 30 ML SDV ONE (06:40)
[2017-04-14] MEDS ORDERED: LIDOCAINE 1% 300 MG/30 ML SDV ONE (06:40)
[2017-04-14] MEDS ORDERED: ceFAZolin 2 GM/DEXTROSE 100 ML IV ONE (06:49)
--- NOTE | 2017-04-14 06:54 | PDGENHP ---
History & Physical Chief Complaint: left shoulder rotator cuff tear History of Present Illness: Jimi is a pleasant 67 year old male who presented to our office with left shoulder RCT, labral tear, biceps tear, impingement. He has undergone conservative treatment and wants to proceed with surgical inervention Pertinent Past, Social, Family History: Non-contributory Relevant Physical Exam: Left shoulder limited ROM. Pain withe ROM. TTP overlying the bicipital groove. + empty can + Speeds. ER: 12/10. IR: 01/09. ABD: 12/10 Cardiorespiratory Assessment: RRR. CTAB
[2017-04-14] MEDS ORDERED: LIDOCAINE 2% 5 ML SDV ONE (07:08)
[2017-04-14] MEDS ORDERED: PROPOFOL 200 MG/20 ML VIAL ONE (07:08)
[2017-04-14] MEDS ORDERED: HYDROmorphONE/DILAUDID 2 MG/ML INJ ONE (07:11)
[2017-04-14] MEDS ORDERED: HYDROmorphONE/DILAUDID 1 MG/ML SYR IVP PRN (07:34)
[2017-04-14] MEDS ORDERED: NALOXONE HCL 0.4 MG/ML INJ IVP PRN (07:34)
[2017-04-14] MEDS ORDERED: fentaNYL 100 MCG/2 ML INJ IVP PRN ×2 (07:34)
[2017-04-14] MEDS ORDERED: ONDANSETRON 4 MG/2 ML VIAL IVP PRN ×2 (07:34→09:21)
--- NOTE | 2017-04-14 07:37 | PDANEPAE ---
ANE History of Present Illness L Shoulder Arthoroscopy ANE Past Medical History - Cardiovascular History Hx Hypertension: No Hx Arrhythmias: No Hx Chest Pain: No Hx Coronary Artery / Peripheral Vascular Disease: No Hx CHF / Valvular Disease: No Hx Palpitations: No Cardiovascular History Comment: bp runs low. 01/27/17 admitted to hospital for left calf dvt - Pulmonary History Hx COPD: No Hx Asthma/Reactive Airway Disease: No Hx Recent Upper Respiratory Infection: No Hx Oxygen in Use at Home: No Hx Sleep Apnea: No Sleep Apnea Screening Result - Last Documented: Negative Pulmonary History Comment: PNEUMONIA 1982 - Neurologic History Hx Cerebrovascular Accident: No Hx Seizures: No Hx Dementia: No Neurologic History Comment: HX -GUILLIAN BARRE. PARAPLEGIC SINCE 1982 - Endocrine History Hx Diabetes: No - Renal History Hx Renal Disorders: Yes Renal History Comment: RECURRENT UTIS. SUPRAPUBIC CATHETER - Liver History Hx Hepatic Disorders: No Hepatic History Comment: CHOLECYSTECTOMY - Neurological & Psychiatric Hx Hx Neurological and Psychiatric Disorders: No - Cancer History Hx Cancer: No - Congenital Disorder History Hx Congenital Disorders: No - GI History Hx Gastrointestinal Disorders: No - Other Health History Other Health History: wears glasses. admitted to hospital 01/27-02/03/17 for left lower extremity cellulitis and left calf dvt - Chronic Pain History Chronic Pain: No - Surgical History Prior Surgeries: 04/10/16 Right Olecranon bursa excision with Master. SEPTIC BURSITIS L 2010. TRACHEOTOMY 1982. CHOLECYSTECTOMY. R HIP SKIN FLAP X4 ANE Review of Systems Review of systems is: negative - Exercise capacity METS (RN): 1 METS ANE Patient History - Allergies Allergies/Adverse Reactions: No Known Allergies Allergy (Verified 04/02/17 14:28) - Home Medications Home Medications: Multivitamins [Multivitamin (*)] 1 each PO DAILY 01/05/17 [Last Taken 04/07/17] Oxybutynin Chloride Xl [Ditropan Xl 5mg (*)] 5 mg PO DAILY 01/05/17 [Last Taken 04/13/17] Herbals/Supplements -Info Only 1 ea PO DAILY 04/02/17 [Last Taken 04/07/17] - NPO status NPO Since - Liquids (Date): 04/13/17 NPO Since - Liquids (Time): 01:00 NPO Since - Solids (Date): 04/13/17 NPO Since - Solids (Time): 19:00 - Smoking Hx Smoking Status: Never smoked - Family Anes Hx Family Hx Anesthesia Complications: none ANE Labs/Vital Signs - Vital Signs Blood Pressure: 104/63 Heart Rate: 83 Respiratory Rate: 16 O2 Sat (%): 99 Height: 175.26 cm Weight: 68.039 kg ANE Physical Exam - Airway Neck exam: decreased ROM Mallampati Score: Class 3 Mouth exam: normal dental/mouth exam - Pulmonary Pulmonary: clear to auscultation - Cardiovascular Cardiovascular: regular rate and rhythym ANE Anesthesia Plan Anesthesia Plan: general endotracheal anesthesia
[2017-04-14] MEDS ORDERED: epHEDrine SULFATE 10 MG/ML SYR ONE (07:43)
[2017-04-14] MEDS ORDERED: PHENYLEPHRINE HCL 100 MCG/ML SYR ONE (07:43)
[2017-04-14] MEDS ORDERED: LIDO/EPI 1% **Not for Epidural 20 ML MDV ONE (07:46)
--- NOTE | 2017-04-14 09:27 | POSTOPPROG ---
Post Op Note Date of Operation: 04/14/17 Surgeon: Reid Ma Librarian Assistant: Linsey Walters PA-C Anesthesia: GET(General Endotracheal) Pre-op Diagnosis: left shoulder RCT Post-op Diagnosis: Left shoulder partial RCT, impingement, biceps tendonitis Procedure: Left shoulder arthroscopy with labral debridement, biceps tenotomy, SAD Inf/Abcess present in the surg proc area at time of surgery?: No Depth: Deep Incisional (Fascial) EBL: Minimal
--- NOTE | 2017-04-14 09:28 | SOAPPROG ---
SOAP Progress Note Assessment/Plan: Assessment: PT is POD#0 from left shoulder arthroscopy, labral debridement, biceps tenotomy , SAD. Dressing in place. Plan: 1. Sling for chief of party use. Patient may come out of sling 2. Pt is able to be partial weight bearing 3. Reinforce dressing as needed, however, do not remove the dressing 4. Likely discharge tomorrow AM. Prescriptions for pain medication and muscle relaxer in chart 04/14/17 09:27 Objective: Vital Signs Temp Pulse Resp BP Pulse Ox 36.4 C 83 16 104/63 99 04/14/17 06:54 04/14/17 07:36 04/14/17 07:36 04/14/17 07:36 04/14/17 07:36 ICD10 Worksheet Patient Problems: Problems Problem Status Onset Infection due to resistant organism Active Cellulitis Acute Pneumonia Acute Urinary tract infection Acute Vancomycin resistant enterococcus culture positive Acute 03/19/17
--- NOTE | 2017-04-14 09:54 | POSTANESTH ---
Post Anesthetic Evaluation Cardiovascular Status: Normal, Stable Respiratory Status: Normal, Stable Level of Consciousness/Mental Status: Can Participate in Eval, Alert and Oriented Pain Control: Adequate, Prn Tx Ordered Nausea/Vomiting Control: Adequate, Prn Tx Ordered Complications Possibly Related to Anesthesia: None Noted
--- NOTE | 2017-04-14 19:53 | GOP ---
[f rep st] OPERATIVE REPORT PATIENT: BLAYNE MENDENHALL DATE OF SERVICE: 04/14/17 PATIENT DATE OF : 1950 SURGEON: Reid Ma M.D. RECONCILIATION COORDINATOR: Linsey Walters PA-C Mrs. Baptiste assistance was medically necessary for patient positioning and the retraction of vital structures. ANESTHESIA: General / regional anesthesia by surgeon PRE-OPERATIVE DIAGNOSES: Left shoulder subacromial impingement (ICD-10 code M75.50 bursitis of shoulder) Left shoulder acromioclavicular joint arthritis (ICD-10 code M13.119 acromioclavicular joint arthritis) Left shoulder SLAP tear (ICD-10 code S43.439S Superior glenoid labrum lesion of shoulder) Left shoulder biceps tenosynovitis (ICD-10 code M75.20 bicipital tendinitis of shoulder) Left shoulder partial thickness rotator cuff tear (ICD-10 code M75.110 incomplete rotator cuff tear) POST-OPERATIVE DIAGNOSES: Left shoulder subacromial impingement (ICD-10 code M75.50 bursitis of shoulder) Left shoulder acromioclavicular joint arthritis (ICD-10 code M13.119 acromioclavicular joint arthritis) Left shoulder SLAP tear (ICD-10 code S43.439S Superior glenoid labrum lesion of shoulder) Left shoulder biceps tenosynovitis (ICD-10 code M75.20 bicipital tendinitis of shoulder) Left shoulder partial thickness rotator cuff tear (ICD-10 code M75.110 incomplete rotator cuff tear) OPERATIVE PROCEDURES: CPT code 64298 Left shoulder arthroscopic subacromial decompression CPT code 87524 -- Left shoulder arthroscopic debridement, extensive CPT code 51040 Left shoulder arthroscopic distal clavicle excision CPT code 62934 Left shoulder long head of biceps tenotomy EBL: 1cc COMPLICATIONS: None IMPLANTS: None BRIEF CLINICAL NOTE: This is a very pleasant 67 year old male with a significant history for severe left shoulder subacromial impingement, AC joint arthritis, biceps tendinitis, degenerative labral tears, and a partial thickness rotator cuff tear. As such, I have discussed the risks, benefits, alternatives, and complications associated with both non-operative (specifically , observation, NSAIDs, activity modifications, injections, PT) and operative ( specifically, left shoulder arthroscopy with subacromial decompression, distal clavicle excision, labral debridement, biceps tenotomy, and rotator cuff debridement and/or repair) forms of treatment. The patient fully understands the risks, benefits, alternatives, and complications associated with both forms of treatment and wishes to proceed with operative intervention as outlined above. The patient has also signed the informed consent form for surgery. OPERATIVE NOTE: On the day of surgery, all of the patients questions were answered. The patient was then transferred from the pre-operative area into the operating room and a formal, Time-Out procedure was performed. The patient was identified by name, medical record number, social security number, and date of . In addition, the patients left upper extremity was identified as the correct portion of the patients body for surgery with the patients left shoulder being identified as the correct portion of that extremity for surgery. The anesthesia team administered pre-operative antibiotics for prophylaxis. The patient was then transferred to the operating room table and placed in the beach chair position while padding all bony prominences. The extremity was then prepped and draped in the normal sterile fashion. A sterile marking pen was then utilized to mayra out standard posterior, lateral , and anterior arthroscopic portal incisions. Next, an 18-gauge spinal needle was utilized to localize the glenohumeral joint and the joint was insufflated with 60cc of a 50:50 mixture of 1% lidocaine with 1:200,000 components of epinephrine and normal saline. Following this, an 11-blade was utilized to make the posterior portal incision. The blunt obturator and arthroscopic cannula was then advance through the posterior portal incision into the glenohumeral joint. The arthroscope was then inserted and the shoulder was brought into external rotation. Next, an 18-gauge spinal needle was utilized to create the anterior portal with an outside-in technique. A medium-sized StartXrex corckscrew cannula was then inserted through the anterior portal incision. At this point, a diagnostic arthroscopy was performed in the glenohumeral space. The following structures were identified and examined with the following findings: Glenohumeral diagnostic arthroscopy Glenoid: intact Humeral head: intact Glenoid labrum Anterior labrum: degenerative fraying Superior labrum: degenerative fraying Posterior labrum: degenerative fraying Inferior labrum: intact Biceps tendon: partial tearing Glenohumeral ligaments: SGHL: intact MGHL: intact AIGHL: intact PIGHL: intact Undersurface of rotator cuff: Subscapularis: intact Supraspinatus: intact Infraspinatus: intact Following this, a 4.0mm aggressive cutter was then inserted through the anterior portal and an extensive debridement was performed within the glenohumeral joint. Next, the cautery wand was inserted through the anterior portal and the long head of the biceps tendon was released off of the supraglenoid tubercle. Following this, the arthroscope was then removed from the glenohumeral joint and posterior cannula was then re-directed into the subacromial space. The arthroscope was then re-inserted into the posterior cannula. Next, an 18-gauge spinal needle was used to create a straight lateral portal with an outside-in technique. A large Arthrex corkscrew cannula was then through the lateral portal incision. The 4.0mm aggressive cutter and the cautery wand were utilized to excise the subacromial-subdeltoid bursa. At this point, a diagnostic arthroscopy was performed in the subacromial space. The following structures were identified and examined with the following findings: Subacromial space diagnostic arthroscopy Subacromial / subdeltoid bursa: hypertrophic and inflamed Acromion: large undersurface spurr Coracoacromial ligament: intact Acromioclavicular joint: undersurface spurring Bursal surface of rotator cuff muscles: Supraspinatus: partial thickness bursal-sided tear Infraspinatus: intact Following this, the 4.0mm barrel golden was utilized to perform both an acromioplasty as well as an arthroscopic distal clavicle excision. This provided for an excellent subacromial decompression. The partial thickness supraspinatus tear was then debrided and probed. All probe testing demonstrated no evidence of a full thickness tear. As such, meticulous hemostasis was then obtained in the subacromial space with the cautery wand. Following this, the arthroscope and all instruments were then removed from the joint. All wounds were copiously irrigated with sterile normal saline. The subcutaneous plane was re-approximated with 3-0 vicryl sutures and the skin was re-approximated with a running 4-0 moncryl subcuticular stitch. A mixture of 1 % lidocaine and 0.5% Marcaine was then utilized to perform a regional block of the operative sites. The skin was then cleaned with sterile normal saline and dried. Dermabond was then applied to all of the incisions followed by a Xeroform gauze dressing, a dry sterile dressing, and an occlusive ioban dressin. The arm was then placed into a sling and swathe. The patient was reversed from anesthesia and transferred from the operating room table onto the post-operative gurney and transferred from the operating room to the PACU in stable condition. POST-OPERATIVE PLAN: The patient will remain in the current dressing and sling for the next 2 weeks. The patient will follow-up in 2 weeks for a wound check and initiation of gentle forearm, elbow, and shoulder ROM exercises. /[id number]/MODL MTDD
[2017-04-14] MEDS: oxyCODONE IR 5 MG TAB PO PRN (21:29)
[2017-04-14] MEDS: AMOXICILLIN/CLAVULANATE POT 875/125 MG TAB PO SCH (21:29)
[2017-04-15] MEDS: oxyCODONE IR 5 MG TAB PO PRN ×3 (00:43→17:09)
[2017-04-15] MEDS: AMOXICILLIN/CLAVULANATE POT 875/125 MG TAB PO SCH ×2 (08:29→20:38)
[2017-04-15] MEDS: MULTIVITAMINS 1 EACH TAB PO SCH (08:29)
[2017-04-15] MEDS: OXYBUTYNIN 5 MG EXT REL TAB PO SCH (08:29)
[2017-04-15] MEDS ORDERED: Herbals/Supplements -Info Only PO SCH (09:00)
--- NOTE | 2017-04-15 10:05 | PDIAF ---
- Diagnosis Diagnosis: left shoulder partial rotator cuff tear, impingement syndrome Code Status: Full Code - Medication Management Discharge Medications: Medications to Continue on Transfer Multivitamins [Multivitamin (*)] 1 each PO DAILY 01/05/17 [Last Taken 04/07/17] Oxybutynin Chloride Xl [Ditropan Xl 5mg (*)] 5 mg PO DAILY 01/05/17 [Last Taken 04/13/17] Amoxicillin/Clavulanate Pot [Augmentin 875 MG TAB (*)] 875 mg PO BID #14 tab [Last Taken 04/13/17] Herbals/Supplements -Info Only 1 ea PO DAILY 04/02/17 [Last Taken 04/07/17] Rivaroxaban [Xarelto] 20 mg PO DAILY #30 tablet 04/15/17 [Last Taken 04/10/17] oxyCODONE IR [Oxycodone Ir (*)] 5 - 10 mg PO Q4HRS PRN #0 tab 04/15/17 [Last Taken Unknown] Discharge Medications: Refer to the Discharge Home Medication list for PRN reason. PICC Care - Routine: N/A - Orders Services needed: Home Care, Registered Nurse, Physical Therapy, Occupational Therapy Home Care Face to Face: I certify that this patient was under my care and that I had the required [id number] encounter meeting the encounter requirements on the discharge day. My findings support the fact that the patient is homebound as defined in CMS Chapter 7 Medicare Benefits Manual 30.1.1, The condition of the patient is such that there exists a normal inability to leave home and consequently, leaving home would require a considerable and taxing effort. Diet Recommendation: no restrictions on diet Diet Texture: Regular Texture Diet Norton: Yes Crow Stockings Discontinue Date: knee high TEDS Wound Care Instructions: Keep dressing clean and dry. Do not remove dressing. Reinforce if needed Sutures/[place] Site: Dressing is to remain in place. We will change dressing and remove sutures in office at 2 week appointment Activity/Weight Bearing Restrictions: Partial weight bearing LUE. Additional: PT/OT to work on ROM left shoulder. - Follow Up Care Current Providers and Referrals: Darrell Lew MD [Primary Care Provider] -
--- NOTE | 2017-04-15 13:14 | WOCRNPDOC ---
WOCRN Advanced Assessment Note - Skin Integrity Problem, Advanced Assess Right Buttock Pressure Injury Dressing Type: Allevyn Life Dressing Description: Clean/Dry, Intact Exudate Amount: None Integumentary Issue Intervention: Visualized Under Dressing Wound Bed Color: Red, Yellow Wound Bed Constitution: Granulation Tissue, Adhered Slough Wound Edges: Attached (medial wound), Not Attached (middle and lateral wounds) Site Odor: None Site Measurement - Head-to-Toe Length X Width X Depth (cm): lateral DTI: 1x0.5x0 , Middle unstagable: 1x0.5x0.4, Distal unstagable: 0.5x0.3x0.4, medial Stage 3: 0.5x0.5x0.1 Pressure Injury Stage: Stage 3, Unstageable Pressure Injury Present on Admit: Yes Skin Integrity Problem Comment: 4 wounds present on right ischial tuberosity. There are 3 in a row and one distal to the 3. Lateral wound is a deep tissue injury that is currently intact and appears to be resolving. The middle and distal wounds are the deepest and are currently an unstagable pressure injuries. The medial wound is a healing full thickness wound currently presenting as a stage 3 with 100% granulation and epithelizing edges. Enzymatic debridement will be initiated for the two unstagable wounds. Discussed care plan with patient extensively, also with Linsey CRESPO. All questions answered. [facility] need [facility] care after discharge.
[2017-04-15] MEDS: COLLAGENASE 30 GM OINTMENT TP SCH (17:10)
--- NOTE | 2017-04-15 18:14 | SOAPPROG ---
MARLENY Progress Note Assessment/Plan: Assessment: HPI: 67 year old male POD#1 from left shoulder arthroscopy with SAD, DCE, biceps tenotomy, labral debridement and rotator cuff debridement PE: Gen: NAD AVSS LUE: Dressings CDI +D, B, T, ECRL, ECRB, EDC, EPL, FPL, FDS, FDP, FDP-I, DI, PI +M/R/U SILT 2+ radial and ulnar pulsess Assessment and Plan 67 year old male POD#1 from left shoulder arthroscopy with SAD, DCE, biceps tenotomy, labral debridement and rotator cuff debridement on 04/14/17 doing well -Sling part-time for comfort -Partial WB on LUE -Encourage gentle left shoulder, elbow, forearm, wrist, finger, and thumb ROM -Plan for discharge to SNF 04/15/17 18:11 Objective: Vital Signs Temp Pulse Resp BP Pulse Ox 37.0 C 76 18 117/58 L 96 04/15/17 16:11 04/15/17 16:11 04/15/17 16:11 04/15/17 16:11 04/15/17 16:11 04/14/17 04/15/17 04/16/17 05:59 05:59 05:59 Intake Total 1050 900 Output Total 1820 600 Balance -770 300 ICD10 Worksheet Patient Problems: Problems Problem Status Onset Infection due to resistant organism Active Cellulitis Acute Pneumonia Acute Urinary tract infection Acute Vancomycin resistant enterococcus culture positive Acute 03/19/17
[2017-04-16] MEDS: AMOXICILLIN/CLAVULANATE POT 875/125 MG TAB PO SCH ×2 (09:30→21:28)
[2017-04-16] MEDS: MULTIVITAMINS 1 EACH TAB PO SCH (09:30)
[2017-04-16] MEDS: COLLAGENASE 30 GM OINTMENT TP SCH (09:30)
[2017-04-16] MEDS: OXYBUTYNIN 5 MG EXT REL TAB PO SCH (09:30)
--- NOTE | 2017-04-16 15:49 | SOAPPROG ---
MARLENY Progress Note Assessment/Plan: Assessment: HPI: 67 year old male POD#2 from left shoulder arthroscopy with SAD, DCE, biceps tenotomy, labral debridement and rotator cuff debridement PE: Gen: NAD AVSS LUE: Dressings CDI +D, B, T, ECRL, ECRB, EDC, EPL, FPL, FDS, FDP, FDP-I, DI, PI +M/R/U SILT 2+ radial and ulnar pulsess Assessment and Plan 67 year old male POD#2 from left shoulder arthroscopy with SAD, DCE, biceps tenotomy, labral debridement and rotator cuff debridement on 04/14/17 doing well -Sling part-time for comfort -Partial WB on LUE -Encourage gentle left shoulder, elbow, forearm, wrist, finger, and thumb ROM -Plan for discharge to SNF -FU as an outpatient in 1-2 weeks 04/15/17 18:11 04/16/17 15:49 Objective: Vital Signs Temp Pulse Resp BP Pulse Ox 37 C 79 16 94/60 L 96 04/16/17 07:38 04/16/17 07:38 04/16/17 07:38 04/16/17 12:51 04/16/17 07:38 04/15/17 04/16/17 04/17/17 05:59 05:59 05:59 Intake Total 1050 1450 Output Total 1820 1250 Balance -770 200 ICD10 Worksheet Patient Problems: Problems Problem Status Onset Infection due to resistant organism Active Cellulitis Acute Pneumonia Acute Urinary tract infection Acute Vancomycin resistant enterococcus culture positive Acute 03/19/17
[2017-04-16] MEDS: oxyCODONE IR 5 MG TAB PO PRN (21:36)
[2017-04-17] MEDS: OXYBUTYNIN 5 MG EXT REL TAB PO SCH (10:00)
[2017-04-17] MEDS: AMOXICILLIN/CLAVULANATE POT 875/125 MG TAB PO SCH ×2 (10:00→20:03)
[2017-04-17] MEDS: COLLAGENASE 30 GM OINTMENT TP SCH (10:00)
[2017-04-17] MEDS: MULTIVITAMINS 1 EACH TAB PO SCH (10:00)
[2017-04-17] MEDS: RIVAROXABAN 20 MG TAB PO SCH (11:08)
--- NOTE | 2017-04-17 11:51 | SOAPPROG ---
SOAP Progress Note Assessment/Plan: Assessment: Assessment/Plan: Assessment: HPI: 67 year old male POD#3 from left shoulder arthroscopy with SAD, DCE, biceps tenotomy, labral debridement and rotator cuff debridement PE: Gen: NAD AVSS LUE: Dressings CDI +D, B, T, ECRL, ECRB, EDC, EPL, FPL, FDS, FDP, FDP-I, DI, PI +M/R/U SILT 2+ radial and ulnar pulsess Assessment and Plan 67 year old male POD#2 from left shoulder arthroscopy with SAD, DCE, biceps tenotomy, labral debridement and rotator cuff debridement on 04/14/17 doing well -Resume Xarelto -Sling part-time for comfort -Partial WB on LUE -Encourage gentle left shoulder, elbow, forearm, wrist, finger, and thumb ROM -PT/OT for ROM -Plan for discharge to SNF -FU as an outpatient in 1-2 week 04/17/17 11:49 Objective: Vital Signs Temp Pulse Resp BP Pulse Ox 36.2 C 77 14 95/62 L 97 04/17/17 08:00 04/17/17 08:00 04/17/17 08:00 04/17/17 08:00 04/17/17 08:00 04/16/17 04/17/17 04/18/17 05:59 05:59 05:59 Intake Total 1450 1000 Output Total 1250 0 Balance 200 -1050 ICD10 Worksheet Patient Problems: Problems Problem Status Onset Infection due to resistant organism Active Cellulitis Acute Pneumonia Acute Urinary tract infection Acute Vancomycin resistant enterococcus culture positive Acute 03/19/17
[2017-04-17] MEDS: oxyCODONE IR 5 MG TAB PO PRN (23:46)
[2017-04-18] MEDS: AMOXICILLIN/CLAVULANATE POT 875/125 MG TAB PO SCH ×2 (09:32→21:29)
[2017-04-18] MEDS: OXYBUTYNIN 5 MG EXT REL TAB PO SCH (09:33)
[2017-04-18] MEDS: RIVAROXABAN 20 MG TAB PO SCH (09:33)
[2017-04-18] MEDS: MULTIVITAMINS 1 EACH TAB PO SCH (09:33)
[2017-04-18] MEDS: COLLAGENASE 30 GM OINTMENT TP SCH (09:33)
--- NOTE | 2017-04-18 11:34 | SOAPPROG ---
SOAP Progress Note Assessment/Plan: Assessment: Assessment/Plan: Assessment: HPI: 67 year old male POD#4 from left shoulder arthroscopy with SAD, DCE, biceps tenotomy, labral debridement and rotator cuff debridement. He reports he is doing well with pain improving in the left shoulder. PE: Gen: NAD AVSS LUE: Dressings CDI +D, B, T, ECRL, ECRB, EDC, EPL, FPL, FDS, FDP, FDP-I, DI, PI +M/R/U SILT 2+ radial and ulnar pulsess Assessment and Plan 67 year old male POD#4 from left shoulder arthroscopy with SAD, DCE, biceps tenotomy, labral debridement and rotator cuff debridement on 04/14/17 doing well -Resume Xarelto -Sling part-time for comfort -Partial WB on LUE -Encourage gentle left shoulder, elbow, forearm, wrist, finger, and thumb ROM -PT/OT for ROM -Plan for discharge to SNF. Case management to discuss with patient. -FU as an outpatient in 1-2 week 04/18/17 11:37 Objective: Vital Signs Temp Pulse Resp BP Pulse Ox 36.9 C 79 18 113/64 96 04/18/17 07:49 04/18/17 07:49 04/18/17 07:49 04/18/17 07:49 04/18/17 07:49 04/17/17 04/18/17 04/19/17 05:59 05:59 05:59 Intake Total 1000 500 Output Total 2049 1300 Balance -1050 -800 ICD10 Worksheet Patient Problems: Problems Problem Status Onset Infection due to resistant organism Active Vancomycin resistant enterococcus culture positive Acute 03/19/17 Cellulitis Acute Urinary tract infection Acute Pneumonia Acute
[2017-04-18] MEDS ORDERED: POLYETHYLENE GLYCOL 3350 17 GM PKT PO PRN (11:35)
[2017-04-18] MEDS ORDERED: BISACODYL 10 MG SUPP PR PRN (11:35)
[2017-04-18] MEDS ORDERED: LACTULOSE 20 GM/30 ML UDCUP PO PRN (11:35)
[2017-04-18] MEDS ORDERED: MAGNESIUM HYDROXIDE 30 ML UDCUP PO PRN (11:35)
[2017-04-18] MEDS: oxyCODONE IR 5 MG TAB PO PRN (21:29)
[2017-04-18] MEDS: SENNOSIDES/DOCUSATE SODIUM TAB PO SCH (21:29)
[2017-04-19] MEDS: AMOXICILLIN/CLAVULANATE POT 875/125 MG TAB PO SCH ×2 (08:28→21:57)
[2017-04-19] MEDS: RIVAROXABAN 20 MG TAB PO SCH (08:29)
[2017-04-19] MEDS: OXYBUTYNIN 5 MG EXT REL TAB PO SCH (08:29)
[2017-04-19] MEDS: MULTIVITAMINS 1 EACH TAB PO SCH (08:29)
[2017-04-19] MEDS: COLLAGENASE 30 GM OINTMENT TP SCH (10:03)
[2017-04-19] MEDS: SENNOSIDES/DOCUSATE SODIUM TAB PO SCH ×2 (10:15→21:58)
[2017-04-20 07:27] VITALS: RESP 14
[2017-04-20] MEDS: OXYBUTYNIN 5 MG EXT REL TAB PO SCH (08:43)
[2017-04-20] MEDS: RIVAROXABAN 20 MG TAB PO SCH (08:43)
[2017-04-20] MEDS: MULTIVITAMINS 1 EACH TAB PO SCH (08:43)
[2017-04-20] MEDS: AMOXICILLIN/CLAVULANATE POT 875/125 MG TAB PO SCH (08:43)
[2017-04-20] MEDS: SENNOSIDES/DOCUSATE SODIUM TAB PO SCH (08:44)
--- NOTE | 2017-04-20 14:35 | SOAPPROG ---
SOAP Progress Note Assessment/Plan: Assessment: Assessment/Plan: Assessment: HPI: 67 year old male POD#6 from left shoulder arthroscopy with SAD, DCE, biceps tenotomy, labral debridement and rotator cuff debridement. He reports he is doing well with pain improving in the left shoulder. PE: Gen: NAD AVSS LUE: Dressings CDI +D, B, T, ECRL, ECRB, EDC, EPL, FPL, FDS, FDP, FDP-I, DI, PI +M/R/U SILT 2+ radial and ulnar pulsess Assessment and Plan 67 year old male POD#6 from left shoulder arthroscopy with SAD, DCE, biceps tenotomy, labral debridement and rotator cuff debridement on 04/14/17 doing well -Sling part-time for comfort -Partial WB on LUE -Encourage gentle left shoulder, elbow, forearm, wrist, finger, and thumb ROM -PT/OT for ROM and strengthening -Plan for discharge to [facility] -FU as an outpatient in 1 week for repeat evaluation and suture removal 04/18/17 11:37 04/20/17 14:33 Objective: Vital Signs Temp Pulse Resp BP Pulse Ox 36.6 C 77 14 111/63 98 04/20/17 07:24 04/20/17 07:24 04/20/17 07:24 04/20/17 07:24 04/20/17 07:24 04/19/17 04/20/17 04/21/17 05:59 05:59 05:59 Intake Total 300 450 Output Total 1250 1150 Balance -950 -700 ICD10 Worksheet Patient Problems: Problems Problem Status Onset Infection due to resistant organism Active Cellulitis Acute Pneumonia Acute Urinary tract infection Acute Vancomycin resistant enterococcus culture positive Acute 03/19/17
[2017-04-20] MEDS: COLLAGENASE 30 GM OINTMENT TP SCH (16:15)
[2017-04-20 16:29] VITALS: BP 106/67; PULSE 78; TEMP 98; O2SAT 95
--- NOTE | 2017-04-20 17:27 | WOCRNPDOC ---
WOCRN Advanced Assessment Note - Skin Integrity Problem, Advanced Assess Right Buttock Pressure Injury Dressing Type: Tegaderm Film, Telfa Dressing Description: Clean/Dry, Intact, Soiled (lower tegaderm had some feces in it, but wound beds were not contaminated.) Exudate Amount: Scant Exudate Characteristic(s): Bloody Integumentary Issue Intervention: Dressing Changed, Dressing Initialed & Dated Jojo Wound Tissue: Erythema, Macerated Jojo Wound Swelling: None Wound Bed Color: Red, Yellow Wound Bed Constitution: Granulation Tissue (80%), Adhered Slough (20%) Wound Edges: Epithelizing, Attached Site Odor: None Site Measurement - Head-to-Toe Length X Width X Depth (cm): 1x0.9x0.3, 0.4x0.5x0.2 Pressure Injury Stage: Stage 3 (two open wounds), Deep Tissue Injury (DTI) ( extending proximal to superior wound) Pressure Injury Present on Admit: Yes Skin Integrity Problem Comment: Two wounds have closed and the remaining wounds have greatly improved since previous assessment. Most of slough has been removed and wounds are re-epithelizing. Deep tissue injury is unchanged and extends crainially. Discussed findings and plan of care both with patient and KERI Sarabia. Continue Santyl for one week and then switch to silver gel and border foam. D/C orders updated. Flushed wounds with ns and mechanically debrided loose overlying slough. Skin prep applied jojo wound and then wound beds were filled with Santyl. Telfa was used to cover wounds and then secured with tegaderm. Right Medial First Toe Dressing Type: Band Aid Dressing Description: Clean/Dry, Intact Exudate Amount: None Wound Bed Color: Red Wound Bed Constitution: Smooth Tissue Wound Edges: Epithelizing Site Measurement - Head-to-Toe Length X Width X Depth (cm): 1x1x0 Skin Integrity Problem Comment: Older traumatic wound that is re-epithelizing. No concerns. Leave band aid on and change Q5 days or if soiled earlier.
== END 2017-04-20 17:53 | DRG 500 ==
LOC: F3N 05:41 → EDSTATUS 07:15 → F3N 10:22 → OBSVTOIN 04-15 10:38
PROVIDERS: ADMIT Orthopaedic Surgery Hand Surgery; ATTEND Orthopaedic Surgery Hand Surgery
PROC: 0LN Tendons, Release (ICD-10-PCS; principal; 2017-04-15)
PROC: 0RNK4ZZ Release Left Shoulder Joint, Percutaneous Endoscopic Approach (ICD-10-PCS; principal; 2017-04-15)
DX: M75.20 Bicipital tendinitis, unspecified shoulder (principal); M75.50 Bursitis of unspecified shoulder; M13.1 Monoarthritis, not elsewhere classified; L89.313 Pressure ulcer of right buttock, stage 3
CPT/HCPCS: 97162-GP; 97166-GO; 97530-GO; 97530-GP; 97535-GO; G8978-GP-CL; G8979-GP-CJ; G8987-GO-CL; G8988-GO-CK; J0171; J0690; J1170; J2370; J2704

== ENCOUNTER → 2017-05-07 | Outpatient (CLI) | payer OTHER, MEDICAID ==
[~2017-05-07] MED LIST: IOPAMIDOL (ISOVUE-300) 100 ML BTL ONE
== END ==
LOC: FIMAGING 15:58
PROVIDERS: ATTEND Internal Medicine Infectious Disease
DX: R31.0 Gross hematuria (principal); Z96.0 Presence of urogenital implants
CPT/HCPCS: 74178; Q9967

== ENCOUNTER 2018-01-11 11:31 | Emergency (ER) | payer OTHER, MEDICAID ==
--- NOTE | 2018-01-11 12:19 | EDPHY ---
H & P Stated Complaint: Catherter blocked on and off for 3 weeks. Time Seen by Provider: 01/11/18 12:12 HPI/ROS: CHIEF COMPLAINT: Chronic intermittent Norton catheter blockage HISTORY OF PRESENT ILLNESS: The patient presents to the ED struggling with intermittent mucous and blockage of his chronic suprapubic catheter. The patient has a history of resistant colonization. He recently was treated with antibiotics. He denies any fever or flank pain. The patient did follow up with Urology and is scheduled to undergo cystoscopy in 3 weeks. He presents to the ED today requesting more urgent cystoscopy. 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 REVIEW OF SYSTEMS: A comprehensive 10 point review of systems is otherwise negative aside from elements mentioned in the history of present illness. Source: Patient Exam Limitations: No limitations - Personal History Current Tetanus Diphtheria and Acellular Pertussis (TDAP): Yes - Medical/Surgical History Hx Asthma: No Hx Chronic Respiratory Disease: No Hx Diabetes: No Hx Cardiac Disease: No Hx Renal Disease: No Hx Cirrhosis: No Hx Alcoholism: No Hx HIV/AIDS: No Hx Splenectomy or Spleen Trauma: No Other PMH: guillan barre, paraplegia , chronic utis; suprapubic catheter, transverse myelitis, DVT, cellulitis leg, L shoulder surgery - Social History Smoking Status: Never smoked - Physical Exam Exam: General Appearance: Alert, no distress Eyes: Pupils equal and round no pallor or injection ENT, Mouth: Mucous membranes moist Respiratory: There are no retractions, lungs are clear to auscultation Cardiovascular: Regular rate and rhythm Gastrointestinal: Abdomen is soft and nontender, no masses, bowel sounds normal Neurological: 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 Genitourinary: Suprapubic catheter site clean dry and intact Skin: Warm and dry, no rashes Musculoskeletal: Neck is supple nontender Extremities: symmetrical, full range of motion Constitutional: Initial Vital Signs Temperature (C) 36.4 C 01/11/18 11:37 Heart Rate 69 01/11/18 11:37 Respiratory Rate 18 01/11/18 11:37 Blood Pressure 127/76 H 01/11/18 11:37 O2 Sat (%) 94 01/11/18 11:37 O2 Delivery Mode Room Air Allergies/Adverse Reactions: No Known Allergies Allergy (Verified 04/02/17 14:28) Home Medications: Medication Instructions Recorded Multivitamins [Multivitamin (*)] 1 each PO DAILY 01/05/17 Oxybutynin Chloride Xl [Ditropan 5 mg PO DAILY 01/05/17 Xl 5mg (*)] Herbals/Supplements -Info Only 1 ea PO DAILY 04/02/17 Medical Decision Making ED Course/Re-evaluation: The patient's bladder scan demonstrates a 0 mL postvoid residual. The patient has no fever. He has stable vital signs. At this point time I see no evidence of an obvious urologic emergency. The patient will be advised to follow up as scheduled with his urologist. Departure - Departure Disposition: Home, Routine, Self-Care Clinical Impression: Norton catheter in place, Paraplegia Condition: Good Instructions: Chronic Urinary Retention in Women (ED) Additional Instructions: 1. Follow up with your urologist as scheduled. We have contacted Dr. Shah' s medical records specialist for assistance in scheduling a more timely follow-up appointment. 2. Return to the ED for fever, vomiting or other concerns. Referrals: Mike Kimbrough MD [Medical Doctor] - As per Instructions
[2018-01-11 13:50] VITALS: BP 104/66
--- NOTE | 2018-01-11 14:50 | ASDISCHSUM ---
Discharge Information Plan Status:Home with No Needs Medically Cleared to Leave: Discharge Date:01/11/2018 01:50 PM CM D/C Disposition:Home, Routine, Self-Care ADT D/C Disposition:Home, Routine, Self-Care Projected Discharge Date:01/11/2018 01:50 PM Transportation at D/C:None or Unknown Discharge Delay Reason: Follow-Up Date:01/11/2018 01:50 PM Discharge Slot: Final Diagnosis: Placement Information Patient Contact Information Contact Name:MAXIM Relationship:Sister Address: Work Phone: City:[place] Alternate Phone: [facility]/[employer] Code:[place] Email: Financial Information Financial Class:Medicare Primary Plan Desc:MEDICARE OUTPATIENT Primary Plan Number:[id number] Secondary Plan Desc:MEDICAID [place] Secondary Plan Number:[id number] Assessment Information [facility] CM Progress Note CM Note CM Note Notes: Pt presented to the ED for chronic, intermittent banerjee catheter blockage for the past 3 weeks. Pt has an appt with Dr Kimbrough at [facility] ([phone]) on 01/20/18 for a diagnostic cystoscopy. Pt is also planning on getting shoulder surgery 02/02/18 so pt was wondering if CM could try to get pt an earlier appt with Dr Kimbrough or another urologist. This CM spoke w/VIDHYA White for Dr Kimbrough, and she said she will try to get patient an earlier appt and will reach out to the patient. Patient aware and also provided a list of other urologists in the surrounding area. CM available for further assistance if needed. Date Signed: 01/11/2018 02:49 PM Electronically Signed By:Zina Grigsby RN Intervention Information Intervention Type:Health Clinic Date of Service:01/11/2018 02:49 PM Patient Type:Emergency Room Staff Member:KERI Grigsby Sharon Hours:0.25 Discipline:Chopped Strand Operator Severity: Comment:Called [facility], spoke with Dr Mireya paces Cindy KEE regarding pt needing glenda reynolds.
--- NOTE | 2018-01-11 14:52 | ASMTCASEMG ---
Services Used Prior to Admission Home Services Used Prior Answers: Home Health Services to Admission Home/Community Service Agency Name(s) Notes: [facility] Date Signed: 01/11/2018 02:51 PM Electronically Signed By:Zina Grigsby RN
== END 2018-01-11 13:50 | disposition home or self-care (01) ==
DX: G82.20 Paraplegia, unspecified (principal); Z96.0 Presence of urogenital implants

== ENCOUNTER 2018-02-02 05:31 | Inpatient (IN) | payer OTHER, MEDICAID ==
[2018-02-02] MEDS ORDERED: LR 1,000 ML IV ONE (05:45)
[2018-02-02] MEDS ORDERED: LIDOCAINE 1% 2 ML INJ ID PRN (05:45)
[2018-02-02] MEDS ORDERED: LIDOCAINE 1% 300 MG/30 ML SDV ONE (06:44)
[2018-02-02] MEDS ORDERED: BUPIVACAINE 0.5% 30 ML SDV ONE (06:44)
[2018-02-02] MEDS ORDERED: EPINEPHrine 30 MG/30 ML MDV (0.1 MG/0.1 ML) ONE (06:44)
--- NOTE | 2018-02-02 06:47 | PDANEPAE ---
ANE History of Present Illness 67 year old M w/ Paraplegia presents for left shoulder arthroscopy w/ possible rotator cuff repair. ANE Past Medical History - Cardiovascular History Hx Hypertension: No Hx Arrhythmias: No Hx Chest Pain: No Hx Coronary Artery / Peripheral Vascular Disease: No Hx CHF / Valvular Disease: No Hx Palpitations: No Cardiovascular History Comment: RUNS LOW BP - Pulmonary History Hx COPD: No Hx Asthma/Reactive Airway Disease: No Hx Recent Upper Respiratory Infection: No Hx Oxygen in Use at Home: No Hx Sleep Apnea: No Sleep Apnea Screening Result - Last Documented: Negative Pulmonary History Comment: PNEUMONIA 1982 - Neurologic History Hx Cerebrovascular Accident: No Hx Seizures: No Hx Dementia: No Neurologic History Comment: HX -GUILLIAN BARRE/TRANSVERSE MYELITIS. PARAPLEGIC SINCE 1982 - Endocrine History Hx Diabetes: No Hypothyroid: No Hyperthyroid: No Obesity: no - Renal History Hx Renal Disorders: Yes Renal History Comment: RECURRENT UTIS/MOST RECENT 01/2018 FINISHED ANTIBIOTICS . SUPRAPUBIC CATHETER. NEUROGENIC BLADDER - Liver History Hx Hepatic Disorders: Yes Hepatic History Comment: CHOLECYSTECTOMY - Neurological & Psychiatric Hx Hx Neurological and Psychiatric Disorders: No - Cancer History Hx Cancer: No - Congenital Disorder History Hx Congenital Disorders: No - GI History Hx Gastrointestinal Disorders: No - Other Health History Other Health History: LT BUTTOCKS HAS SM SORE. HAS BEEN COVERING WITH BANDAIDS - Chronic Pain History Chronic Pain: Yes (LT SHLDR) - Surgical History Prior Surgeries: SEPTIC BURSITIS L AND R. TRACHEOTOMY 1982. CHOLECYSTECTOMY. R HIP SKIN FLAP X4. L SHOULDER ANE Review of Systems Review of Systems: - Exercise capacity Exercise capacity: <4 METS METS (RN): 1 METS ANE Patient History - Allergies Allergies/Adverse Reactions: No Known Allergies Allergy (Verified 04/02/17 14:28) - Home Medications Home medications: home medication list seen and reviewed Home Medications: Multivitamins [Multivitamin (*)] 1 each PO DAILY 01/05/17 [Last Taken 1 Week Ago ~01/26/18] Oxybutynin Chloride Xl [Ditropan Xl 5mg (*)] 5 mg PO DAILY 01/05/17 [Last Taken 02/01/18] Herbals/Supplements -Info Only 1 ea PO DAILY 04/02/17 [Last Taken 1 Week Ago ~] AMOXICILLIN 02/02/18 [Last Taken 02/01/18] - NPO status NPO Status: no food or drink >8 hours NPO Since - Liquids (Date): 02/01/18 NPO Since - Liquids (Time): 22:00 NPO Since - Solids (Date): 02/01/18 NPO Since - Solids (Time): 20:00 - Anes Hx Anes Hx: no prior problems - Smoking Hx Smoking Status: Never smoked Marijuana use: No - Alcohol Use Alcohol Use: Rarely - Family Anes Hx Family Anes Hx: neg - N/A Family Hx Anesthesia Complications: NEG ANE Labs/Vital Signs - Vital Signs Vital Signs: reviewed preoperatively; see RN documention for details Blood Pressure: 118/68 Heart Rate: 71 Respiratory Rate: 16 O2 Sat (%): 99 Height: 172.72 cm Weight: 63.503 kg ANE Physical Exam - Airway Neck exam: FROM Mallampati Score: Class 2 Mouth exam: normal dental/mouth exam - Pulmonary Pulmonary: no respiratory distress - Cardiovascular Cardiovascular: regular rate and rhythym - ASA Status ASA Status: III ANE Anesthesia Plan Anesthesia Plan: general endotracheal anesthesia, GA w LMA Regional Anesthesia: single shot NB, interscalene BP NB, supraclavicular BP NB Total IV Anesthesia: No
[2018-02-02] MEDS ORDERED: ceFAZolin 2 GM/SWFI 2 GM/20 ML SYR IVP ONE (06:50)
--- NOTE | 2018-02-02 06:53 | PDHPUP ---
History & Physical Update H&P update statement: This history and physical update is based on an assessment of the patient which was completed after admission or registration (within 24 hours), but prior to the surgery/procedure. RRR CTAB H&P update: no change in patient's condition since H&P completed
[2018-02-02] MEDS ORDERED: fentaNYL 100 MCG/2 ML INJ ONE (07:10)
[2018-02-02] MEDS ORDERED: PROPOFOL 200 MG/20 ML VIAL ONE (07:10)
[2018-02-02] MEDS ORDERED: ceFAZolin 2 GM/DEXTROSE 100 ML IV ONE (07:15)
[2018-02-02] MEDS ORDERED: LR 500 ML IV PRN (08:29)
[2018-02-02] MEDS ORDERED: NALOXONE HCL 0.4 MG/ML INJ IVP PRN (08:29)
[2018-02-02] MEDS ORDERED: ACETAMINOPHEN 500 MG TAB PO PRN (08:29)
[2018-02-02] MEDS ORDERED: oxyCODONE IR 5 MG TAB PO PRN ×2 (08:29→09:45)
[2018-02-02] MEDS ORDERED: ONDANSETRON 4 MG/2 ML VIAL IVP PRN ×2 (08:29→09:45)
[2018-02-02] MEDS ORDERED: fentaNYL 100 MCG/2 ML INJ IVP PRN (08:29)
[2018-02-02] MEDS ORDERED: HYDROmorphONE/DILAUDID 2 MG/ML INJ IVP PRN (08:29)
[2018-02-02] MEDS ORDERED: DEXAMETHASONE 4 MG/ML VIAL ONE (09:41)
[2018-02-02] MEDS ORDERED: ONDANSETRON 4 MG/2 ML VIAL ONE (09:41)
--- NOTE | 2018-02-02 09:53 | SOAPPROG ---
SOAP Progress Note Assessment/Plan: Assessment: Patient is POD#0 from left shoulder arthroscopy with rotator cuff repair. PE: Sling in place Dressing clean and dry NV intact LUE Plan: 1. Patient is to remain in sling with no use left upper extremity. NWB LUE 2. Keep dressing clean and dry. Reinforce if needed 3. PT/OT - left upper extremity to remain in sling 4. Plan for patient to be admitted by hospitalist for medical management prior to patient being transferred to nursing facility 5. Case management for discharge planning 6. Follow up in our office in 2 weeks for repeat evaluation and suture removal 02/02/18 09:50 Objective: Vital Signs Temp Pulse Resp BP Pulse Ox 36.7 C 71 16 118/68 99 02/02/18 06:22 02/02/18 07:08 02/02/18 07:08 02/02/18 07:08 02/02/18 07:08 ICD10 Worksheet Patient Problems: Problems Problem Status Onset Infection due to resistant organism Active Cellulitis Acute Pneumonia Acute Urinary tract infection Acute Vancomycin resistant enterococcus culture positive Acute 03/19/17
--- NOTE | 2018-02-02 09:54 | POSTOPPROG ---
Post Op Note Date of Operation: 02/02/18 Surgeon: Reid Ma Social Media Marketing Specialist: Linsey Walters Anesthesia: GET(General Endotracheal) Pre-op Diagnosis: left shoulder RCT Post-op Diagnosis: left shoulder RCT Procedure: left shoulder arthroscopy with labral debridement, RCR Inf/Abcess present in the surg proc area at time of surgery?: No EBL: Minimal
[2018-02-02] MEDS: TRIAMCINOLONE 0.1% TP SCH ×2 (16:06→22:04)
--- NOTE | 2018-02-02 16:16 | PDGENHP ---
History and Physical - Chief Complaint Acute dark bowel movements - History of Present Illness Primary care provider: Dr. Darrell Lew Primary infectious Disease: Dr. Gatito Machuca Primary orthopedic surgeon: Dr. Reid Ma HPI: 67-year-old male presenting with acute dark stools characterized as fecal incontinence of dark coloration without target appearance or overt blood, with onset of symptoms recently and in the context of positive cologard test in the outpatient setting approximately 2 months ago. He does PCP have been attempting to arrange outpatient colonoscopy for the past month without success. The patient has some associated reflux that he characterizes as posterior throat sensation which is exacerbated by leaning forward and also associated with some nausea. The patient has been hospitalized in the setting of left rotator cuff surgery with resultant paresthesias located in his left upper extremity and recommendation by his orthopedic surgeon to not lie on the affected shoulder. The patient reports that he is subsequently unable to complete activities of daily living and will require complete assistance with activities of daily living. History Information - Allergies/Home Medication List Allergies/Adverse Reactions: No Known Allergies Allergy (Verified 04/02/17 14:28) Home Medications: Multivitamins [Multivitamin (*)] 1 each PO DAILY 01/05/17 [Last Taken 1 Week Ago ~01/26/18] Oxybutynin Chloride Xl [Ditropan Xl 5mg (*)] 5 mg PO DAILY 01/05/17 [Last Taken 02/01/18] Herbals/Supplements -Info Only 1 ea PO DAILY 04/02/17 [Last Taken 1 Week Ago ~] Amoxicillin/Clavulanate Pot [Augmentin 875 MG TAB (*)] 875 mg PO BID 02/02/18 [ Last Taken 02/01/18] Betamethasone Dipropionate 1 fannie TP BID 02/02/18 [Last Taken Unknown] Clobetasol Propionate [Temovate] 1 fannie TP BID 02/02/18 [Last Taken Unknown] Triamcinolone 0.1% [Triamcinolone 0.1% Cream (*)] 1 fannie TP BID 02/02/18 [Last Taken Unknown] Urea 40% [Urea Cream (*)] 1 fannie TP BID 02/02/18 [Last Taken Unknown] I have personally reviewed and updated: family history, medical history, social history, surgical history - Past Medical History GERD Additional medical history: 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 recurrent urinary tract infections with VRE, Pseudomonas, prevention LAURIE. recent contact dermatitis lower extremities - Surgical History Additional surgical history: SP catheter - Family History Additional family history: No recent sick family contacts, no family history of colon cancer or venous thromboembolism - Social History Smoking Status: Never smoked Alcohol Use: Rarely Drug Use: None Additional social history: utilizes wheelchair, lives independently Review of Systems Review of Systems: ROS: 10pt was reviewed & negative except for what was stated in HPI & below Gastrointestinal: Reports: other (Dark stools, fecal incontinence) Neurological: Reports: paresthesia (Left upper extremity) Physical Exam Physical Exam: Temp Pulse Resp BP Pulse Ox 36.6 C 75 18 145/86 H 98 02/02/18 15:49 02/02/18 15:49 02/02/18 15:49 02/02/18 15:49 02/02/18 15:49 O2 (L/minute) 8 Constitutional: no apparent distress, not in pain, No uncomfortable Eyes: PERRL, anicteric sclera, EOMI Ears, Nose, Mouth, Throat: moist mucous membranes, hearing normal, ears appear normal, no oral mucosal ulcers Cardiovascular: regular rate and rhythym, no murmur, rub, or gallop, No edema Respiratory: no respiratory distress, no rales or rhonchi, clear to auscultation Gastrointestinal: normoactive bowel sounds, soft, non-tender abdomen, no palpable masses, No distension Genitourinary: other (SP catheter in place, urine is yellow) Musculoskeletal: other (Left upper extremity in sling, bandages over left lateral and anterior surgical sites) Neurologic: AAOx3, No sensation intact bilaterally (Left upper extremity paresthesias), No weakness (Motor strength 5/5 left fingers sourcing intern strength) Psychiatric: interacting appropriately, not anxious, not encephalopathic, thought process linear Assessment & Plan Assessment: 67-year-old male presents with left rotator cuff surgery rendering him completely unable to complete activities of daily living in the setting of chronic paraplegia Plan: 1. Paraplegia. Chronic, patient status post transverse myelitis with resultant paraplegia and a complete loss of sensation below the mid abdomen, as well as resulting fecal incontinence and urinary retention requiring SP catheter -patient is completely unable to complete activities of daily living now that his left upper extremity has been immobilized, and the patient will require full assistance and care at a care home facility 2. Rotator cuff surgery. Postop day [address] Reid Ma, appreciate ongoing orthopedic consultation and assistance with pain management once anesthesia has worn off -reviewed outside records including discharge summary from 05/20/2017 by Linsey CRESPO, she reports that the patient underwent a previous left rotator cuff surgery on 04/13/17 and did require care home facility placement after that surgery as well for assistance with ADLs -discussed case with Dr. Reid Ma, he has reported to me that the patient absolutely cannot lie on his left shoulder and he should in a keep this left upper extremity in sling -Dr. Ma recommend care home facility placement -incentive spirometer 3. Positive fecal occult blood test. Acute, new problem this provider, further workup indicated. With recent dark stool, last colonoscopy 15 years ago with tubular adenoma, and positive cologard test, patient warrants diagnostic colonoscopy for further evaluation -I discussed this with Dr. No Massey, she reports that since the patient cannot lie on his left shoulder, the test should be deferred at this time until the patient is able to do so, so that the colonoscopy can be performed adequately with proper visualization of the entire colon -I recommendation would be for the patient to heal from his present surgery, and then prep for the procedure as an outpatient under the direction of GI of the Dr. Gene Mora office -the specific prep will need to be carefully arranged with the patient, given his baseline fecal incontinence 4. Recurrent urinary tract infections. Reviewed recent labs demonstrates urinalysis on 01/21/2018 demonstrating nitrate positive, white blood cells, leukocyte esterase, patient is status post 10 days of Augmentin twice daily, discontinue -if he experiences any recurrent symptoms, repeat Diet. Regular Prophylaxis. High risk patient, Lovenox for Code. Full Disposition. Anticipated discharge is uncertain this time, anticipated length stay is greater than 48 hr for reasonable medical necessity including inability to complete activities of daily living safely secondary to chronic paraplegia, rotator cuff surgery rendering patient unable to utilize his left upper extremity requiring ongoing occupational and physical therapy assessments determine safe level of care.
--- NOTE | 2018-02-02 19:36 | POSTANESTH ---
Post Anesthetic Evaluation Cardiovascular Status: Normal, Stable, Similar to Pre-Op Cond Respiratory Status: Normal, Stable, Similar to Pre-op Cond. Level of Consciousness/Mental Status: Can Participate in Eval, Alert and Oriented Pain Control: Adequate, Prn Tx Ordered Nausea/Vomiting Control: Adequate, Prn Tx Ordered Complications Possibly Related to Anesthesia: None Noted
[2018-02-02] MEDS ORDERED: AMOXICILLIN/CLAVULANATE POT 875/125 MG TAB PO SCH (21:00)
[2018-02-02] MEDS: BETAMETHASONE DIPROPIONATE TP SCH (22:04)
[2018-02-02] MEDS: CLOBETASOL PROPIONATE TP SCH (22:14)
[2018-02-02] MEDS: UREA 40% CREAM TP SCH (22:14)
[2018-02-03] MEDS: OXYBUTYNIN 5 MG EXT REL TAB PO SCH (08:22)
[2018-02-03] MEDS: TRIAMCINOLONE 0.1% TP SCH ×2 (08:22→20:19)
[2018-02-03] MEDS: MULTIVITAMINS 1 EACH TAB PO SCH (08:22)
[2018-02-03] MEDS: BETAMETHASONE DIPROPIONATE TP SCH ×2 (08:23→20:19)
[2018-02-03] MEDS ORDERED: Herbals/Supplements -Info Only PO SCH (09:00)
--- NOTE | 2018-02-03 10:56 | PDMN ---
Medical Necessity Medical necessity: Pt meets IP criteria per MD; est los >2 mn for eval/tx of inability to complete ADLs safely secondary to chronic paraplegia s/p rotator cuff surgery POD #0, as well as pressure injury on coccyx; admit for further monitoring, Wound Care/CM consults & therapies; hx recurrent UTIs, pseudomonas & fecal incontinence; per H&P & order 02/02/18
[2018-02-03] MEDS: UREA 40% CREAM TP SCH ×2 (11:27→20:20)
[2018-02-03] MEDS: CLOBETASOL PROPIONATE TP SCH (11:28)
--- NOTE | 2018-02-03 14:51 | ASMTCMCOM ---
CM Note CM Note Notes: D/W MD, patient will likely need rehab upon discharge d/t ongoing therapy needs, paraplegia, rotator cuff surgery. Met with patient re: discharge plan of care. Patient agrees he needs rehab and states he has been at [facility] in the past and is okay with returning. Patient has Medicare Part B only, Medicaid secondary. [id number] was completed and faxed to [facility], also notified [employer]. Spoke with Aamir Puckett at [facility], rn case manager hospice may be able to process his application without completing an onsite eval since he is already current with [facility] (Emergency Veterinarian: Nicolette Chester #[phone]). [facility] will process application and be in touch with Case Management. Referral has been sent to [facility] via [employer]. CM will follow. Current Plan: Hopefully [facility] Date Signed: 02/03/2018 02:50 PM Electronically Signed By:Alicia Benjamin RN
--- NOTE | 2018-02-03 16:03 | HOSPPROG ---
Hospitalist Progress Note Assessment/Plan: Assessment: 67-year-old male presents with left rotator cuff surgery rendering him completely unable to complete activities of daily living in the setting of chronic paraplegia Plan: 1. Paraplegia. Chronic, patient status post transverse myelitis with resultant paraplegia and a complete loss of sensation below the mid abdomen, as well as resulting fecal incontinence and urinary retention requiring SP catheter -patient is completely unable to complete activities of daily living now that his left upper extremity has been immobilized, and the patient will require full assistance and care at a correction facility -he is currently experiencing significant difficulty sitting upright as he has very little volitional core strength 2. Rotator cuff surgery. Postop day [address] Reid Ma, appreciate ongoing orthopedic consultation and assistance with pain management -the patient absolutely cannot lie on his left shoulder and he should in a keep this left upper extremity in sling -Dr. Ma recommend correction facility placement -incentive spirometer 3. Positive fecal occult blood test. I discussed this with Dr. No Massey , she reports that since the patient cannot lie on his left shoulder, the test should be deferred at this time until the patient is able to do so, so that the colonoscopy can be performed adequately with proper visualization of the entire colon -I recommendation would be for the patient to heal from his present surgery, and then prep for the procedure near the end of his rehab stay, if deemed OK by Dr. Ma -the specific prep will need to be carefully arranged with the patient, given his baseline fecal incontinence 4. Recurrent urinary tract infections. Reviewed recent labs demonstrates urinalysis on 01/21/2018 demonstrating nitrate positive, white blood cells, leukocyte esterase, patient is status post 10 days of Augmentin twice daily, discontinue -if he experiences any recurrent symptoms, repeat Diet. Regular Prophylaxis. High risk patient, Lovenox 40 Code. Full Disposition. Anticipated discharge is uncertain this time, pending therapy evals, likely SNF Subjective: patient reports unable to sit upright, mild pain in L shouler Objective: Vital Signs Temp Pulse Resp BP Pulse Ox 36.6 C 74 14 109/51 L 98 02/03/18 15:50 02/03/18 15:50 02/03/18 15:50 02/03/18 15:50 02/03/18 15:50 Laboratory Results 02/03/18 04:34 02/03/18 04:34 02/02/18 02/03/18 02/04/18 05:59 05:59 05:59 Intake Total 1425 Output Total 1060 725 Balance 365 -725 - Physical Exam Constitutional: no apparent distress, appears nourished, not in pain, No uncomfortable Cardiovascular: regular rate and rhythym, no murmur, rub, or gallop, No edema Respiratory: no respiratory distress, no rales or rhonchi, clear to auscultation Gastrointestinal: normoactive bowel sounds, soft, non-tender abdomen, no palpable masses, No distension Musculoskeletal: other (LUE in sling) Neurologic: AAOx3 Psychiatric: interacting appropriately, not anxious, not encephalopathic, thought process linear ICD10 Worksheet Patient Problems: Problems Problem Status Onset Infection due to resistant organism Active Vancomycin resistant enterococcus culture positive Acute 03/19/17 Cellulitis Acute Urinary tract infection Acute Pneumonia Acute
--- NOTE | 2018-02-03 16:44 | WOCRNPDOC ---
WOCRN Advanced Assessment Note - Skin Integrity Problem, Advanced Assess Right Ischial Tuberosity Pressure Injury Dressing Type: Allevyn Life Dressing Description: Clean/Dry, Intact Exudate Amount: Minimal Exudate Color: Reddish/Yellow Exudate Characteristic(s): Serosanguinous Integumentary Issue Intervention: Visualized Under Dressing Jojo Wound Tissue: Blanching, Erythema, Intact, Scarred Wound Bed Color: Red, Yellow Wound Bed Constitution: Granulation Tissue (10%), Adhered Slough (90%) Wound Edges: Attached Site Odor: None Site Measurement - Head-to-Toe Length X Width X Depth (cm): 3.1x2.2x0.1 Pressure Injury Stage: Unstageable Skin Integrity Problem Comment: Chronic wheelchair bound patient with history of multiple pressure injuries on sacral/coccyx and ischial regions. Extensive scarring present. Wound bed with thin layer of slough and is full thickness. Patient had many questions about the plan of care and was surprised by the size of the wound. We took a photos for him on his personal telephone so he could visualize it. Plan to initiate enzymatic debridement with Santyl daily so he can get the dressing changed at the SNF after his bowel program daily. [facility] kennel staff member visualized wound. Lamar and [facility] Wound RN's also in room for care. Wound care will round on patient again Thursday.
--- NOTE | 2018-02-03 18:31 | SOAPPROG ---
SOAP Progress Note Assessment/Plan: Assessment: Patient is POD#1 from left shoulder arthroscopy with rotator cuff repair. He reports he is doing well with minimal pain. PE: Sling in place Dressing clean and dry NV intact LUE Mild swelling LUE Plan: 1. Patient is to remain in sling with no use left upper extremity. NWB LUE. Patient is not to lay on his left shoulder 2. Keep dressing clean and dry. Reinforce if needed 3. Oral pain medication as needed for pain. 4. Plan for patient to be admitted by hospitalist for medical management prior to patient being transferred to nursing facility 5. Case management for discharge planning to nursing facility ([facility]) 6. Follow up in our office in 2 weeks for repeat evaluation and suture removal 02/03/18 18:29 02/03/18 18:33 Objective: Vital Signs Temp Pulse Resp BP Pulse Ox 36.6 C 74 14 109/51 L 98 02/03/18 15:50 02/03/18 15:50 02/03/18 15:50 02/03/18 15:50 02/03/18 15:50 Laboratory Results 02/03/18 04:34 02/03/18 04:34 02/02/18 02/03/18 02/04/18 05:59 05:59 05:59 Intake Total 1425 Output Total 1060 1225 Balance 365 -1225 ICD10 Worksheet Patient Problems: Problems Problem Status Onset Infection due to resistant organism Active Cellulitis Acute Pneumonia Acute Urinary tract infection Acute Vancomycin resistant enterococcus culture positive Acute 03/19/17
[2018-02-03] MEDS: ACETAMINOPHEN 325 MG TAB PO PRN (20:27)
[2018-02-04] MEDS: MULTIVITAMINS 1 EACH TAB PO SCH (10:03)
[2018-02-04] MEDS: BETAMETHASONE DIPROPIONATE TP SCH ×2 (10:03→21:11)
[2018-02-04] MEDS: OXYBUTYNIN 5 MG EXT REL TAB PO SCH (10:03)
[2018-02-04] MEDS: TRIAMCINOLONE 0.1% TP SCH ×2 (10:04→21:12)
[2018-02-04] MEDS: [UNRECOGNIZED DRUG - MIXTURE] TP SCH ×3 (10:05→21:11)
[2018-02-04] MEDS: COLLAGENASE 30 GM OINTMENT TP SCH (10:05)
[2018-02-04] MEDS: UREA 40% CREAM TP SCH ×2 (10:06→21:12)
[2018-02-04] MEDS ORDERED: oxyCODONE IR 5 MG TAB PO PRN (11:31)
[2018-02-04 12:53] LABS: PLATELET COUNT 201 10^3/uL (150-400)
--- NOTE | 2018-02-04 14:37 | GOP ---
[f rep st] OPERATIVE REPORT PATIENT: BLAYNE MENDENHALL DATE OF SERVICE: 02/02/18 PATIENT DATE OF : 1950 SURGEON: Reid Ma M.D. ENVIRONMENTAL LAWYER: Linsey Walters PA-C Mrs. Baptiste assistance was medically necessary for patient positioning and the retraction of vital structures. ANESTHESIA: General / regional anesthesia PRE-OPERATIVE DIAGNOSES: Left shoulder subacromial impingement (ICD-10 code M75.52 left shoulder bursitis) Left shoulder acromioclavicular joint arthritis (ICD-10 code M13.112 left shoulder acromioclavicular joint arthritis) Left shoulder SLAP tear (ICD-10 code S43.432D left shoulder superior glenoid labrum lesion) Left shoulder rotator cuff tear (ICD-10 code S46.002A left shoulder rotator cuff tear) POST-OPERATIVE DIAGNOSES: Left shoulder subacromial impingement (ICD-10 code M75.52 left shoulder bursitis) Left shoulder acromioclavicular joint arthritis (ICD-10 code M13.112 left shoulder acromioclavicular joint arthritis) Left shoulder SLAP tear (ICD-10 code S43.432D left shoulder superior glenoid labrum lesion) Left shoulder rotator cuff tear (ICD-10 code S46.002A left shoulder rotator cuff tear) OPERATIVE PROCEDURES: CPT code 63479 Left shoulder arthroscopic subacromial decompression CPT code 65078 -- Left shoulder arthroscopic debridement, extensive CPT code 74791 Left shoulder arthroscopic distal clavicle excision CPT code 43487 Left shoulder arthroscopic rotator cuff repair EBL: 2cc COMPLICATIONS: None IMPLANTS: One Arthrex 5.5mm bio-composite corkscrew anchor triple loaded with # 2 Fiber Wire BRIEF CLINICAL NOTE: This is a very pleasant 67 year old male with a significant history for left shoulder subacromial impingement, acromioclavicular joint arthritis, degenerative labral tears, and a full thickness rotator cuff tear. As such, I have discussed the risks, benefits, alternatives, and complications associated with both non-operative (specifically , observation, PT, activity modifications, NSAIDs, injection) and operative ( specifically, left shoulder arthroscopy with subacromial decompression, distal clavicle excision, labral debridement, and rotator cuff repair) forms of treatment. The patient fully understands the risks, benefits, alternatives, and complications associated with both forms of treatment and wishes to proceed with operative intervention as outlined above. The patient has signed the informed consent form for surgery. OPERATIVE NOTE: On the day of surgery, all of the patients questions were answered. The patient was then transferred from the pre-operative area into the operating room and a formal, Time-Out procedure was performed. The patient was identified by name, medical record number, social security number, and date of . In addition, the patients left upper extremity was identified as the correct portion of the patients body for surgery with the patients left shoulder being identified as the correct portion of that extremity for surgery. The anesthesia team administered pre-operative antibiotics for prophylaxis. The patient was then transferred to the operating room table and placed in the beach chair position while padding all bony prominences. The extremity was then prepped and draped in the normal sterile fashion. A sterile marking pen was then utilized to mayra out standard posterior, lateral , and anterior arthroscopic portal incisions. An 18-gauge spinal needle was utilized to localize the glenohumeral joint and the joint was insufflated with 60cc of a 50:50 mixture of 1% lidocaine with 1:200,000 components of epinephrine and normal saline. Following this, an 11-blade was utilized to make the posterior portal incision. The blunt obturator and arthroscopic cannula were then advanced through the posterior portal incision into the glenohumeral joint. The arthroscope was inserted and the shoulder was brought into external rotation. An 18-gauge spinal needle was utilized to create the anterior portal with outside-in technique. A medium-sized Arthrex corckscrew cannula was then inserted through the anterior portal incision. A diagnostic arthroscopy was performed in the glenohumeral space. The following structures were identified and examined with the following findings: Glenohumeral diagnostic arthroscopy Glenoid: mild degenerative changes Humeral head: mild degenerative changes Glenoid labrum Anterior labrum: degenerative fraying Superior labrum: degenerative fraying Posterior labrum: intact Inferior labrum: intact Biceps tendon: absent status post previous long head of biceps tenotomy Glenohumeral ligaments: SGHL: intact MGHL: intact AIGHL: intact PIGHL: intact Undersurface of rotator cuff: Subscapularis: low-grade partial undersurface tear Supraspinatus: full thickness focal tear anteriorly Infraspinatus: intact The 4.0mm aggressive cutter was then inserted through the anterior portal and an extensive debridement was performed within the glenohumeral joint. The arthroscope was then removed from the glenohumeral joint and the posterior cannula was re-directed into the subacromial space. The arthroscope was then re -inserted into the posterior cannula. An 18-gauge spinal needle was used to create a straight lateral portal with outside-in technique. A large Arthrex corkscrew cannula was inserted through the lateral portal incision. The 4.0mm aggressive cutter and the cautery wand were passed through the lateral portal to excise the subacromial-subdeltoid bursa. A diagnostic arthroscopy was performed in the subacromial space. The following structures were identified and examined with the following findings: Subacromial space diagnostic arthroscopy Subacromial / subdeltoid bursa: hypertrophic scar tissue Acromion: undersurface spurring Coracoacromial ligament: intact Acromioclavicular joint: arthritis and undersurface spurring Bursal surface of rotator cuff muscles: Supraspinatus: focal full thickness tear anteriorly Infraspinatus: intact The 4.0mm barrel golden was utilized to perform both an acromioplasty as well as an arthroscopic distal clavicle excision. The torn edge of the rotator cuff was then thoroughly debrided with the 4.0mm aggressive cutter. The rotator cuff footprint was also debrided with both the aggressive cutter and the 4.0mm barrel golden. The anchor site was then localized with outside-in technique utilizing an 18- gauge spinal needle. A 2-mm incision was made overlying the anchor site and the 5.5 mm punch was advanced through the soft tissue and impacted into the bone of the greater tuberosity. The punch was removed and an Arthrex 5.5mm bio- composite corkscrew anchor (triple loaded with #2 Fiber Wire) was then inserted and manually checked for pull-out strength. Each of the suture strands from the anchor were then passed through the torn edge of the rotator cuff moving from anterior to posterior. Next, each suture pair was sequentially tightened and tied moving from anterior to posterior. All of the suture tails were then cut. The arm was brought through internal rotation, external rotation, adduction and abduction. All motions demonstrated an excellent repair of the cuff to the footprint. Meticulous hemostasis was obtained in the subacromial space with the cautery wand. Arthroscopic pictures were taken and saved. The arthroscope and all instruments were then removed from the joint. All wounds were copiously irrigated with sterile normal saline. The subcutaneous plane was re-approximated with 3-0 vicryl sutures and the skin was re-approximated with 4-0 moncryl. The skin was cleaned with sterile normal saline and dried. Dermabond was applied to all of the incisions followed by a Xeroform gauze dressing, a dry sterile dressing, and an occlusive Tegaderm dressing. The arm was then placed into a sling and swathe. The patient was reversed from anesthesia and transferred from the operating room table onto the post-operative gurney and transferred from the operating room to the PACU in stable condition. POST-OPERATIVE PLAN: The patient will remain in the current dressing and sling for the next 2 weeks. The patient will follow-up in 2 weeks for a wound check and initiation of gentle forearm, elbow, and shoulder ROM exercises. /[id number]/MODL MTDD
--- NOTE | 2018-02-04 15:12 | HOSPPROG ---
Hospitalist Progress Note Assessment/Plan: Assessment: 67-year-old male presents with left rotator cuff surgery rendering him completely unable to complete activities of daily living in the setting of chronic paraplegia Plan: 1. Paraplegia. Chronic, patient status post transverse myelitis with resultant paraplegia and a complete loss of sensation below the mid abdomen, as well as resulting fecal incontinence and urinary retention requiring SP catheter -patient is completely unable to complete activities of daily living now that his left upper extremity has been immobilized, and the patient will require full assistance and care at a correction facility -he is currently experiencing significant difficulty sitting upright as he has very little volitional core strength, using rollbelt to assist w/ upright positioning 2. Rotator cuff surgery. Postop day [address] Reid Ma, appreciate ongoing orthopedic consultation and assistance with pain management -the patient absolutely cannot lie on his left shoulder and he should in a keep this left upper extremity in sling -Dr. Ma recommends correction facility placement -incentive spirometer 3. Positive fecal occult blood test. I discussed this with Dr. No Massey , she reports that since the patient cannot lie on his left shoulder, the test should be deferred at this time until the patient is able to do so, so that the colonoscopy can be performed adequately with proper visualization of the entire colon -my recommendation would be for the patient to heal from his present surgery, and then prep for the procedure near the end of his rehab stay, if deemed OK by Dr. Ma -the specific prep will need to be carefully arranged with the patient, given his baseline fecal incontinence, and I will communicate this to his primary GI, Dr. Díaz 4. Recurrent urinary tract infections. Reviewed recent labs demonstrates urinalysis on 01/21/2018 demonstrating nitrate positive, white blood cells, leukocyte esterase, patient is status post 10 days of Augmentin twice daily, discontinue -if he experiences any recurrent symptoms, repeat 5. Hypotension. 2/2 autonomic dysregulation w/ hx of transverse myelitis -using abd binder while upright -checking CBC and BMP Diet. Regular Prophylaxis. High risk patient, Lovenox 40 Code. Full Disposition. Anticipated discharge is 02/05, pending therapy evals, likely SNF Subjective: several episodes of hypotension 02/03, pain well controlled Objective: Vital Signs Temp Pulse Resp BP Pulse Ox 37.2 C 75 18 107/70 98 02/04/18 08:00 02/04/18 08:00 02/04/18 08:00 02/04/18 08:00 02/04/18 08:00 Laboratory Results 02/04/18 12:45 02/04/18 12:45 02/03/18 02/04/18 02/05/18 05:59 05:59 05:59 Intake Total 1425 450 Output Total 1060 2825 Balance 365 -3921 - Pending Discharge Pending Discharge Within 24 Hours: Yes Pending Discharge Date: 02/05/18 Pending Discharge Time: 11:00 - Physical Exam Constitutional: no apparent distress, appears nourished, not in pain, No uncomfortable Cardiovascular: regular rate and rhythym, no murmur, rub, or gallop, No edema Respiratory: no respiratory distress, no rales or rhonchi, clear to auscultation Gastrointestinal: normoactive bowel sounds, soft, non-tender abdomen, no palpable masses, No distension Genitourinary: banerjee in urethra Musculoskeletal: other (atrophied LEs) Neurologic: AAOx3 Psychiatric: interacting appropriately, not anxious, not encephalopathic, thought process linear ICD10 Worksheet Patient Problems: Problems Problem Status Onset Infection due to resistant organism Active Vancomycin resistant enterococcus culture positive Acute 03/19/17 Cellulitis Acute Urinary tract infection Acute Pneumonia Acute
[2018-02-04] MEDS: ACETAMINOPHEN 325 MG TAB PO PRN (21:11)
[2018-02-05] MEDS: ACETAMINOPHEN 325 MG TAB PO PRN ×2 (03:23→10:44)
[2018-02-05 07:52] VITALS: BP 113/69
--- NOTE | 2018-02-05 08:31 | SOAPPROG ---
SOAP Progress Note Assessment/Plan: Assessment: Patient is POD#2 from left shoulder arthroscopy with rotator cuff repair. He reports he is doing well with minimal pain. PE: Sling in place Dressing clean and dry NV intact LUE Mild swelling LUE Plan: 1. Patient is to remain in sling with no use left upper extremity. NWB LUE. Patient is not to lay on his left shoulder 2. Keep dressing clean and dry. Reinforce if needed 3. Oral pain medication as needed for pain 4. Plan for patient to be transferred to SNF 02/05/18 08:30 Objective: Vital Signs Temp Pulse Resp BP Pulse Ox 36.6 C 76 20 113/69 97 02/05/18 07:51 02/05/18 07:51 02/05/18 07:51 02/05/18 07:51 02/05/18 07:51 Laboratory Results 02/04/18 12:45 02/04/18 12:45 02/04/18 02/05/18 02/06/18 05:59 05:59 05:59 Intake Total 450 Output Total 6049 4573 Cftewqs -1955 -4865 ICD10 Worksheet Patient Problems: Problems Problem Status Onset Infection due to resistant organism Active Cellulitis Acute Pneumonia Acute Urinary tract infection Acute Vancomycin resistant enterococcus culture positive Acute 03/19/17
--- NOTE | 2018-02-05 10:01 | PDIAF ---
- Diagnosis Diagnosis: L. shoulder surgery, paraplegic Code Status: Full Code - Medication Management Discharge Medications: Medications to Continue on Transfer Multivitamins [Multivitamin (*)] 1 each PO DAILY 01/05/17 [Last Taken 1 Week Ago ~01/26/18] Oxybutynin Chloride Xl [Ditropan Xl 5mg (*)] 5 mg PO DAILY 01/05/17 [Last Taken 02/01/18] Herbals/Supplements -Info Only 1 ea PO DAILY 04/02/17 [Last Taken 1 Week Ago ~] Betamethasone Dipropionate 1 fannie TP BID 02/02/18 [Last Taken Unknown] Triamcinolone 0.1% [Triamcinolone 0.1% Cream (*)] 1 fannie TP BID 02/02/18 [Last Taken Unknown] Urea 40% [Urea Cream (*)] 1 fannie TP BID 02/02/18 [Last Taken Unknown] Acetaminophen [Tylenol 325mg (*)] 325 - 650 mg PO Q4HRS PRN tab 02/05/18 [Last Taken Unknown] Acetic Acid Irr Soln 0.25% 5 ml IRR DAILY PRN #1 btl 02/05/18 [Last Taken Unknown] Collagenase [Santyl (*)] 1 fannie TP DAILY oint 02/05/18 [Last Taken Unknown] oxyCODONE IR [Oxycodone Ir (*)] 2.5 - 10 mg PO Q4HRS PRN tab 02/05/18 [Last Taken Unknown] Shelter Antibiotics: NA Discharge Medications: Refer to the Discharge Home Medication list for PRN reason. PICC Care - Routine: N/A - Orders Services needed: Registered Nurse, Certified Comedian, Master General Milling Superintendent , Occupational Therapy Isolation Type: Contact Isolation Oxygen: NA Diet Recommendation: no restrictions on diet Norton: Yes (SP catheter w/ bed bag, daily flushes with acetic acid if needed) Wound Care Instructions: Dressing change to right ischium DAILY and PRN impaired dressing: Remove tegaderm with adhesive releaser. 1. clean site w normal saline (NOT wound cleanser) and gauze. 2. Apply Cavilon skin prep to periwound and all red areas. 3. Apply santyl/collagenase (on NOV) to wound base. It needs to be at least 1/8 of an inch thick and covering the entire wound bed. It needs to be thick like cupcake icing over the WHOLE yellow area on the wound bed. 4. Cover with a piece of telfa cut to FIT the wound bed. It should not touch the skin. 5. Secure with tegaderm. Activity/Weight Bearing Restrictions: Patient is to remain in sling at all times with no use left arm. Patient is not to lay on the left side. Patient is able to take oral pain medication for post operative pain. Patient will follow up with Dr. Ma 2 weeks post op for repeat evaluation and suture removal as well as initiation of physical therapy Equipment: [place] harness connected to bed for upright support during daytime Additional Instructions: Bedsore (Pressure injury) care: You have an unstageable pressure injury (also known as a bedsore) on the right the ischium. Please contact [facility] for an appointment, at [phone]. Wound care orders: Dressing change to right ischium DAILY and PRN impaired dressing: Remove tegaderm with adhesive releaser. 1. clean site w normal saline (NOT wound cleanser) and gauze. 2. Apply Cavilon skin prep to periwound and all red areas. 3. Apply santyl/collagenase (on NOV) to wound base. It needs to be at least 1/8 of an inch thick and covering the entire wound bed. It needs to be thick like cupcake icing over the WHOLE yellow area on the wound bed. 4. Cover with a piece of telfa cut to FIT the wound bed. It should not touch the skin. 5. Secure with tegaderm. Judy GLASGOW Post operative instructions: Patient is to remain in sling at all times with no use left arm. Patient is not to lay on the left side. Patient is able to take oral pain medication for post operative pain. Patient will follow up with Dr. Ma 2 weeks post op for repeat evaluation and suture removal as well as initiation of physical therapy. Please arrange bowel prep and outpatient colonoscopy with Dr. Díaz AFTER patient has been cleared to lie on left side by Dr. Chan, in approximately 8 weeks. Please confirm with Dr. Chan it is OK for patient to lie on left side at that time; contact Dr. Díaz's office for bowel prep orders; arrange colonoscopy. - Follow Up Care Current Providers and Referrals: Darrell Lew MD [Primary Care Provider] - 3 days of d/c SNF/Rehab Reid Ma MD [Medical Doctor] - follow up in 2 weeks (call to schedule appointment) Mike Kimbrough MD [Medical Doctor] - Gene Díaz MD, FACG [Medical Doctor] - (arrange diagnostic colonoscopy in approx 8-10 weeks)
[2018-02-05] MEDS: TRIAMCINOLONE 0.1% TP SCH (10:45)
[2018-02-05] MEDS: MULTIVITAMINS 1 EACH TAB PO SCH (10:45)
[2018-02-05] MEDS: COLLAGENASE 30 GM OINTMENT TP SCH (10:45)
[2018-02-05] MEDS: OXYBUTYNIN 5 MG EXT REL TAB PO SCH (10:45)
[2018-02-05] MEDS: BETAMETHASONE DIPROPIONATE TP SCH (10:46)
[2018-02-05] MEDS: [UNRECOGNIZED DRUG - MIXTURE] TP SCH ×2 (10:47→13:54)
[2018-02-05] MEDS: UREA 40% CREAM TP SCH (10:47)
--- NOTE | 2018-02-05 15:34 | PDDCSUM ---
Discharge Summary Discharge Summary: DISCHARGE SUMMARY FOLLOW-UP ITEMS: Arrange outpatient colonoscopy after the patient is able to safely lie on his left shoulder, arranged with [facility] DATE OF ADMISSION: 02/02/2018 DATE OF DISCHARGE: 02/05/2018 DISCHARGE DIAGNOSES: 1. Chronic paraplegia 2. Left rotator cuff surgery 3. Positive fecal occult blood test 4. Chronic urinary retention 5. Acute hypotension CONSULTATIONS: Orthopedic surgery, Dr. Reid Ma PROCEDURES / IMAGING: Left shoulder arthroscopy and rotator cuff repair by Dr. Reid Ma CHIEF COMPLAINT: Acute left shoulder pain SUBJECTIVE: Patient is feeling well at time discharge, his pain is well managed PHYSICAL EXAM ON DISCHARGE: Systolic blood pressure is 100-120, heart rate 79, afebrile neck, satting on room air, alert awake oriented x3, patient has paresis from the trunk down, he is SP catheter in place with clear urine, he is alert awake oriented x3 and has a great sense of humor LABS ON DISCHARGE: Hemoglobin 14.6, creatinine 0.7 HOSPITAL COURSE BY PROBLEM: 1. Rotator cuff surgery. The patient presented to the hospital for left shoulder arthroscopy and rotator cuff repair by Dr. Reid Ma, and the patient is safe for discharge to residential facility on postop day 3. The patient was admitted to the hospital Medicine service given his multiple medical comorbidities and the patient received adequate pain control in his left shoulder. He should be nonweightbearing and in a sling at all times for is a left upper extremity, for at least the next 8 weeks. Given the patient's chronic paraplegia secondary to transverse myelitis, the patient is unable to complete activities of daily living and requires residential facility placement. The patient has very poor core muscle and trunk strength, and requires creative use of a [place] with straps to help keep him upright, as his only currently viable limb is his right upper extremity. He is currently engaging in all necessary activities with his right upper extremity. The patient will be seen in follow-up by Dr. Reid Ma in 2 weeks and he will determine when the patient can increase his weight-bearing status on his left upper extremity. 2. Chronic urinary retention. Patient has a suprapubic catheter and he currently has a bed catheter bag attached to the device. In order to prevent leaking, the patient injects acetic acid 0.25% on a daily basis to keep the urine from building up too much sediment. The patient will continue this methodology, he should follow up with Dr. Kimbrough if there are any issues. 3. Positive fecal occult blood test. Patient has a history of a positive Cologard test and underwent colonoscopy approximately 15 years ago which demonstrated tubular adenoma and an inadequate prep. The patient's primary care provider has been attempting to arrange a diagnostic colonoscopy, but this has been particularly challenging given that the patient has baseline fecal incontinence and requires substantial assistance for a colon prep given that he will completely empty his bowels in his bed. We addressed this issue during the hospital to determine whether we could perform a diagnostic colonoscopy during this episode of care, and since the patient is unable to lay on his left shoulder should he require repositioning during the colonoscopy, it was advised by both the large sheetfed press operator and the orthopedic surgeon that the patient not undergo colonoscopy until the patient can safely a lie on his left shoulder. Consequently, we are awaiting recommendations from Orthopedics at the patient can lay on his shoulder, and is anticipated that it will be approximately 8 weeks time before he is able to do so. We have asked that Dr. Reid Ma communicate with the patient's primary care provider, Dr. Darrell Lew, so that the patient's PCP can arrange for the colonoscopy to be performed while the patient is at residential facility. I have discussed this plan with the patient's PCP, and he will attempt to make these arrangements with GI of the [facility], notably Dr. Gene Díaz, who is the patient's primary large sheetfed press operator. 4. Acute hypotension. This is secondary to autonomic dysregulation with a history of transverse myelitis. The patient did not demonstrate any evidence of infection, and his blood pressure was stabilized after utilizing an abdominal binder. DISCHARGE MEDICATIONS: Please see official discharge medication reconciliation sheet in chart , please continue all home medications without any changes. DISCHARGE INSTRUCTIONS: Please follow up with Dr. Reid Ma in 2 weeks, make arrangements for colonoscopy after you can lie on left shoulder, and then follow up with primary care provider after discharge from residential facility. TIME SPENT: Greater than 30 minutes were spent on direct patient care, as well as discharge planning and preparation.
--- NOTE | 2018-02-05 16:02 | ASMTCMCOM ---
CM Note CM Note Notes: Airam Mtz is AC[employer] worker covering today for Nicolette. Airam completed all the paperwork and got it to [facility] for pt admission. Orders sent in [employer]. Stretcher transport scheduled for 1600. [facility] reports pt wc cannot go w him so they will send a wc van to [facility] to pick it up later this afternoon/evening. Date Signed: 02/05/2018 04:02 PM Electronically Signed By:CLIFTON Varela
--- NOTE | 2018-02-05 16:06 | ASDISCHSUM ---
Discharge Information Plan Status:SNF Medically Cleared to Leave: Discharge Date:02/05/2018 03:45 PM CM D/C [facility] ADT D/C Disposition:[facility] Projected Discharge Date:02/05/2018 11:00 AM Transportation at D/C:ALS/BLS Discharge Delay Reason: Follow-Up Date:02/05/2018 11:00 AM Discharge Slot: Final Diagnosis: Placement Information Referral Type:*Halfway/SNF Referral ID:[id number] Provider Name:[facility] Address 1:[address] Address 2: City:[place] Selection Factors: State:[place] Patient Contact Information Contact Name:JUDAHBC Relationship:Daughter Address:[address] [place] [address] Work Phone: [facility]:[place] Alternate Phone: [facility]/Zip Code:[place] Email: Financial Information Financial Class:Medicare Primary Plan Desc:MEDICARE IP PART B ONLY Primary Plan Number:[id number] Secondary Plan Desc:[place] Secondary Plan Number:[id number] Assessment Information [facility] CM Progress Note CM Note CM Note Notes: D/W MD, patient will likely need rehab upon discharge d/t ongoing therapy needs, paraplegia, rotator cuff surgery. Met with patient re: discharge plan of care. Patient agrees he needs rehab and states he has been at [facility] in the past and is okay with returning. Patient has Medicare Part B only, Medicaid secondary. [id number] was completed and faxed to [facility], also notified [employer]. Spoke with Aamir Puckett at [facility], casework supervisor may be able to process his application without completing an onsite eval since he is already current with [facility] ([employer]: Nicolette Chester #[phone]). [facility] will process application and be in touch with Case Management. Referral has been sent to [facility] via [employer]. CM will follow. Current Plan: Hopefully [facility] Date Signed: 02/03/2018 02:50 PM Electronically Signed By:Alicia Benjamin RN [facility] CM Progress Note CM Note CM Note Notes: [employer] is [employer] worker covering today for Nicolette. [employer] completed all the paperwork and got it to [facility] for pt admission. Orders sent in [employer]. [facility] transport scheduled for 1600. [facility] reports pt wc cannot go w him so they will send a wc van to [facility] to pick it up later this afternoon/evening. Date Signed: 02/05/2018 04:02 PM Electronically Signed By:CLIFTON Varela Intervention Information
== END 2018-02-05 15:45 | DRG 511 ==
LOC: F3N 05:31 → EDSTATUS 07:15 → F3N 10:48
PROVIDERS: ADMIT Orthopaedic Surgery Hand Surgery; ATTEND Orthopaedic Surgery Hand Surgery
PROC: 0RNK4ZZ Release Left Shoulder Joint, Percutaneous Endoscopic Approach (ICD-10-PCS; principal; 2018-02-02 07:15)
PROC: 0MM24ZZ Reattachment of Left Shoulder Bursa and Ligament, Percutaneous Endoscopic Approach (ICD-10-PCS; principal; 2018-02-02 07:15)
PROC: 0LQ24ZZ Repair Left Shoulder Tendon, Percutaneous Endoscopic Approach (ICD-10-PCS; principal; 2018-02-02 07:15)
DX: M75.102 Unspecified rotator cuff tear or rupture of left shoulder, not specified as traumatic (principal); M75.52 Bursitis of left shoulder; M13.112 Monoarthritis, not elsewhere classified, left shoulder; S43.432D Superior glenoid labrum lesion of left shoulder, subsequent encounter; G65.0 Sequelae of Guillain-Barre syndrome; G82.20 Paraplegia, unspecified; G37.3 Acute transverse myelitis in demyelinating disease of central nervous system; Z79.01 Long term (current) use of anticoagulants; Z86.718 Personal history of other venous thrombosis and embolism; Z87.440 Personal history of urinary (tract) infections; Z86.010 Personal history of colon polyps; Z96.0 Presence of urogenital implants; Z87.891 Personal history of nicotine dependence
CPT/HCPCS: 97110-GO; 97162-GP; 97166-GO; 97535-GO; C1713; G8978-GP-CL; G8979-GP-CL; G8987-GO-CL; G8988-GO-CK; G8989-GO-CL; J0171; J0690; J1100; J2405; J2704; J3010

== ENCOUNTER → 2018-05-21 | Day surgery (SDC) | payer OTHER, MEDICAID ==
[~2018-05-21] MED LIST changes: +ACETAMINOPHEN 500 MG TAB PO PRN; +ALBUTEROL 3 ML DEYVIAL IH PRN; +BUPIVACAINE 0.5% 30 ML SDV ONE; +DEXAMETHASONE 4 MG/ML VIAL IVP PRN; +DEXAMETHASONE 4 MG/ML VIAL ONE; +ERTAPENEM 1 GM in NS 100 ML IV ONE; +HYDROCODONE/APAP 5/325 TAB PO PRN; -IOPAMIDOL (ISOVUE-300) 100 ML BTL ONE; +LABETALOL HCL 5 MG/ML 20 ML MDV IVP PRN; +LIDOCAINE 1% 2 ML INJ ID PRN; +LIDOCAINE 2% 100 MG/5 ML SYR ONE; +LIDOCAINE HCL 160 MG/4 ML LTA KIT TP ONE; +LR 1,000 ML IV ONE; +LR 500 ML IV PRN; +MEPERIDINE 25 MG/0.5 ML AMP IVP PRN; +METOCLOPRAMIDE 10 MG/2 ML VIAL IVP PRN; +NALOXONE HCL 0.4 MG/ML INJ IVP PRN; +ONDANSETRON 4 MG/2 ML VIAL IVP PRN; +ONDANSETRON 4 MG/2 ML VIAL ONE; +PHENYLEPHRINE HCL 100 MCG/ML SYR IVP PRN; +PROMETHAZINE HCL 25 MG/ML INJ IVP PRN; +PROPOFOL/EMULSION 500 MG/50 ML BOTTLE IV ONE; +REMIFENTANIL HCL 1 MG VIAL ONE; +THROMBIN (BOVINE) 5,000 UNIT VIAL TP ONE; +VANCOMYCIN HCL/NORMAL SALINE 250 ML IV ONE; +VANCOMYCIN PHARMACY TO DOSE MISC ONE; +ePHEDrine SULFATE 25 MG/5 ML SYR ONE; +fentaNYL 100 MCG/2 ML INJ IVP PRN; +fentaNYL 100 MCG/2 ML INJ ONE; +oxyCODONE IR 5 MG TAB PO PRN
--- NOTE | 2018-05-21 13:28 | PDANEPAE ---
ANE History of Present Illness I&D sacral decubitis ANE Past Medical History - Cardiovascular History Hx Hypertension: No Hx Arrhythmias: No Hx Chest Pain: No Hx Coronary Artery / Peripheral Vascular Disease: No Hx CHF / Valvular Disease: No Hx Palpitations: No Cardiovascular History Comment: bp runs low - Pulmonary History Hx COPD: No Hx Asthma/Reactive Airway Disease: No Hx Recent Upper Respiratory Infection: No Hx Oxygen in Use at Home: No Hx Sleep Apnea: No Sleep Apnea Screening Result - Last Documented: Negative Pulmonary History Comment: hx of PNA 1982 - Neurologic History Hx Cerebrovascular Accident: No Hx Seizures: No Hx Dementia: No Neurologic History Comment: HX -GUILLIAN BARRE. PARAPLEGIC SINCE 1982 - Endocrine History Hx Diabetes: No - Renal History Hx Renal Disorders: Yes Renal History Comment: chronic uti's. suprapubic cath. neurogenic bladder - Liver History Hx Hepatic Disorders: No Hepatic History Comment: CHOLECYSTECTOMY - Neurological & Psychiatric Hx Hx Neurological and Psychiatric Disorders: No - Cancer History Hx Cancer: No - Congenital Disorder History Hx Congenital Disorders: No - GI History Hx Gastrointestinal Disorders: Yes Gastrointestinal History Comment: colonoscopy with Christoph while hospitalized 12/23. 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 wears reading glasses. bilateral hearing aides but doesn't wear often - Chronic Pain History Chronic Pain: No - Surgical History Prior Surgeries: 04/07/18 R ischial i&d. 02/02/18 left shoulder scope/ RTC repair with Master. 04/14/17 left shoulder scope with Master. 04/10/16 right olecranon bursa excision with Master. 2016 SEPTIC BURSITIS L. 1983 TRACHEOTOMY. CHOLECYSTECTOMY. R HIP SKIN FLAP X4 ANE Review of Systems Review of Systems: - Exercise capacity METS (RN): 1 METS ANE Patient History - Allergies Allergies/Adverse Reactions: No Known Allergies Allergy (Verified 05/18/18 12:11) - Home Medications Home medications: home medication list seen and reviewed Home Medications: Oxybutynin Chloride Xl [Ditropan Xl 5mg (*)] 01/05/17 [Last Taken 05/19/18] Herbals/Supplements -Info Only 04/02/17 [Last Taken 1 Week Ago ~01/26/18] Triamcinolone 0.1% [Triamcinolone 0.1% Cream (*)] 02/02/18 [Last Taken 05/19/18 ] Acetaminophen [Tylenol 325mg (*)] 04/05/18 [Last Taken 05/18/18] Augmentin 1000MG ER Tablet (*) 05/18/18 [Last Taken 05/20/18] Doxycycline Calcium 05/18/18 [Last Taken 05/20/18] Nystatin 05/18/18 [Last Taken 05/19/18] - NPO status NPO Status: no food or drink >8 hours NPO Since - Liquids (Date): 05/20/18 NPO Since - Liquids (Time): 23:00 NPO Since - Solids (Date): 05/20/18 NPO Since - Solids (Time): 20:00 - Anes Hx Anes Hx: no prior problems - Smoking Hx Smoking Status: Former smoker - Alcohol Use Alcohol Use: None - Family Anes Hx Family Anes Hx: none Family Hx Anesthesia Complications: none ANE Labs/Vital Signs - Vital Signs Blood Pressure: 119/74 Heart Rate: 58 Respiratory Rate: 18 O2 Sat (%): 99 Height: 172.72 cm Weight: 63.503 kg ANE Physical Exam - Airway Neck exam: FROM Mallampati Score: Class 2 Mouth exam: normal dental/mouth exam - Pulmonary Pulmonary: no respiratory distress - Cardiovascular Cardiovascular: regular rate and rhythym - ASA Status ASA Status: II ANE Anesthesia Plan Anesthesia Plan: general endotracheal anesthesia (prone position)
--- NOTE | 2018-05-21 13:31 | PDHPUP ---
History & Physical Update H&P update statement: This history and physical update is based on an assessment of the patient which was completed after admission or registration (within 24 hours), but prior to the surgery/procedure. H&P update: H&P reviewed & patient examined, no change in patient's condition since H&P completed
--- NOTE | 2018-05-21 15:03 | POSTOPPROG ---
Post Op Note Date of Operation: 05/21/18 Surgeon: Tomas Hawkins Trash Collector: Elizabeth Anesthesiologist: Perico Anesthesia: GET(General Endotracheal) Pre-op Diagnosis: Sacral decubitus ulcer Post-op Diagnosis: same Indication: same Procedure: Closure of wound Findings: Healthy granulation tissue Inf/Abcess present in the surg proc area at time of surgery?: No Depth: Deep Incisional (Fascial) EBL: Minimal
--- NOTE | 2018-05-21 15:06 | PDIAF ---
- Diagnosis Code Status: Full Code - Medication Management Discharge Medications: Medications to Continue on Transfer Oxybutynin Chloride Xl [Ditropan Xl 5mg (*)] 01/05/17 [Last Taken 05/19/18] Herbals/Supplements -Info Only 04/02/17 [Last Taken 1 Week Ago ~01/26/18] Triamcinolone 0.1% [Triamcinolone 0.1% Cream (*)] 02/02/18 [Last Taken 05/19/18 ] Acetaminophen [Tylenol 325mg (*)] 04/05/18 [Last Taken 05/18/18] Augmentin 1000MG ER Tablet (*) 05/18/18 [Last Taken 05/20/18] Doxycycline Calcium 05/18/18 [Last Taken 05/20/18] Nystatin 05/18/18 [Last Taken 05/19/18] Discharge Medications: Refer to the Discharge Home Medication list for PRN reason. - Orders Services needed: Registered Nurse, Physical Therapy, Occupational Therapy Isolation Type: Contact Isolation Diet Recommendation: no restrictions on diet Diet Texture: Regular Texture Diet Additional Instructions: Offload pressure to right buttock as much as possible. Ok to shower, but do not take a bath. Follow up in Dr. Hawkins' office in 1 week. - Follow Up Care Current Providers and Referrals: Darrell Lew MD [Primary Care Provider] - Tomas Hawkins MD [Medical Doctor] - follow up in 1 week
--- NOTE | 2018-05-21 15:17 | POSTANESTH ---
Post Anesthetic Evaluation Cardiovascular Status: Normal, Stable Respiratory Status: Normal, Stable, Tx Decrease in SpO2 Level of Consciousness/Mental Status: Can Participate in Eval Pain Control: Adequate, Prn Tx Ordered Nausea/Vomiting Control: Adequate, Prn Tx Ordered Complications Possibly Related to Anesthesia: None Noted
[2018-05-21 17:13] VITALS: BP 140/68
--- NOTE | 2018-05-30 17:27 | GOP ---
DATE OF OPERATION: 05/21/2018 SURGEON: Tomas Hawkins MD ACCOUNTING ASSISTANT: Pauline Johnson NP ANESTHESIA: Dr. River. PREOPERATIVE DIAGNOSIS: Right ischial decubitus. POSTOPERATIVE DIAGNOSIS: Right ischial decubitus. PROCEDURE PERFORMED: Delayed primary wound closure. FINDINGS: Patient appeared to have adequate granulation tissue for wound closure. He has been on wo und VAC since previous debridement and marsupialization of the wound. DESCRIPTION OF PROCEDURE: Patient was taken to the operating room where he received a satisfactory g eneral endotracheal anesthesia by Dr. River. He was placed in the prone position, prepped and draped in usual sterile fashion. The wound was further debrided with a rongeur, but excellent granulation tissue was present. Hemostasis was obtained with electrocautery. It was felt that the wound was maris quate for delayed primary closure. This was accomplished using interrupted 2-0 Vicryl sutures for th e subcutaneous tissue and the musculoskeletal tissue around the ischial bone. Wound was infiltrated with Marcaine. The skin was closed with interrupted 3-0 Prolene mattress sutures. The wound was car efully dressed with a bulky dressing. He tolerated the procedure well, was taken to the recovery [facility] in good condition. There were no complications. Had appropriate vital signs. /[id number]/MODL
--- NOTE | 2018-05-31 11:23 | PQFORM ---
PHYSICIAN QUERY FORM Needs Your Response This query form is being sent to you to assure this patient record is coded properly. 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 Hawkins, For coding purposes (there are different code choices for the sizes of wounds ) please clarify below the size of the wound repaired on 05/21/2018. 2.5 cm or less 2.6 cm to 7.5 cm 7.6 cm to 12.5 cm 12.3 cm to 20.0 cm 20.1 cm to 30.0 cm over 30.0 cm Thank you GAGE Limon [facility]/Coding Dept. [phone] INSTRUCTIONS FOR RESPONSE: Answer question by clicking on the "Edit Document" button. Move cursor to area below the stars. When complete, hit "Save." Click on the "Sign" button, then click "Sign" again. Type in your PIN and hit "Enter." 8CM MTDD
== END ==
LOC: FSGY 10:16
PROVIDERS: ATTEND Surgery
PROC: 0JQ90ZZ Repair Buttock Subcutaneous Tissue and Fascia, Open Approach (ICD-10-PCS; principal; 2018-05-21 12:00)
DX: L89.319 Pressure ulcer of right buttock, unspecified stage (principal); G82.20 Paraplegia, unspecified; R21 Rash and other nonspecific skin eruption; M86.9 Osteomyelitis, unspecified; R82.90 Unspecified abnormal findings in urine; Z79.2 Long term (current) use of antibiotics
CPT/HCPCS: J1100; J1335; J2001; J2405; J2704; J3010; J3370

== ENCOUNTER 2018-12-30 15:12 | Emergency (ER) | payer OTHER, MEDICAID | END 2018-12-30 16:11 | disposition home or self-care (01) | DX: H61.21 Impacted cerumen, right ear (principal); Z87.891 Personal history of nicotine dependence; Z86.69 Personal history of other diseases of the nervous system and sense organs; Z99.3 Dependence on wheelchair ==